=== PATIENT | female | born 1930 | race Asian ===

== ENCOUNTER 2017-01-27 04:43 | Inpatient (IN) | payer MEDICARE ==
[2017-01-27] VITALS (10 sets, daily range): BP systolic 91–153; BP diastolic 41–113
[~2017-01-27] VITALS: Ht 160 cm; Wt 52.2 kg
[2017-01-27] MEDS ORDERED: ATORVASTATIN CA20 MG GT (04:53)
[2017-01-27] MEDS ORDERED: OXYBUTYNIN CHLO10 MG GT (05:01)
[2017-01-27] MEDS ORDERED: DEPAKOTE ER500 MG GT (05:01)
[2017-01-27] MEDS ORDERED: ZINC SULFATE220 M1 GT (05:01)
[2017-01-27] MEDS ORDERED: VITAMIN C500 M6 GT (05:01)
[2017-01-27] MEDS ORDERED: MULTIVITAMINS1 EAC2 GT (05:01)
[2017-01-27] MEDS ORDERED: PROTONIX40 MG GT (05:01)
[2017-01-27] MEDS ORDERED: LOSARTAN POTASS50 MG GT (05:01)
[2017-01-27] MEDS ORDERED: QUETIAPINE FUMA25 MG GT (05:01)
[2017-01-27] MEDS ORDERED: PRO-STAT LIQUID30 ML GT (05:01)
[2017-01-27] MEDS ORDERED: ACETAMINOPHEN325 M1 GT (05:01)
[2017-01-27] MEDS ORDERED: Acetaminophen 650 MG SUPP RECTAL ONE ×2 (05:04→05:15)
[2017-01-27] MEDS ORDERED: NS 1000ml 1,600 ML IVLG ONE (05:15)
[2017-01-27 06:08] LABS: BILIRUBIN, URINE NEGATIVE (NEGATIVE); GLUCOSE, URINE (UA) NEGATIVE (NEGATIVE); KETONES,URINE NEGATIVE (NEGATIVE); NITRITE,URINE NEGATIVE (NEGATIVE); PH,URINE 9 (4.5-8.0); PROTEIN,URINE 3+ (NEGATIVE); UROBILINOGEN,URINE 1 MG/DL (0.0-1.0)
[2017-01-27 06:20] LABS: COLOR,URINE YELLOW
[2017-01-27 06:21] LABS: APPEARANCE,URINE CLOUDY; LEUKOCYTE ESTERASE ,URINE 1+ (NEGATIVE)
[2017-01-27] MEDS ORDERED: Zosyn 3.375gm inj ONE (06:22)
[2017-01-27 06:24] LABS: ALANINE AMINOTRANSFERASE 51 U/L (12-78); ALBUMIN/GLOBULIN RATIO 0.2 (1.0-2.7); ALKALINE PHOSPHATASE 76 U/L (46-116); ANION GAP 5 mmol/L (5-15); ASPARTATE AMINO TRANSFERASE 103 U/L (15-37); BILIRUBIN,TOTAL 0.2 MG/DL (0.2-1.0); BLOOD UREA NITROGEN 98 mg/dL (7-18); CALCIUM 6.7 MG/DL (8.5-10.1); CARBON DIOXIDE 38 MMOL/L (21-32); CHLORIDE 114 MMOL/L (98-107); CKMB 1.1 NG/ML (0.0-3.6); CREATINE KINASE 870 U/L (26-308); CREATININE 1.9 MG/DL (0.55-1.30); SODIUM 157 MMOL/L (136-145)
[2017-01-27 06:25] LABS: HEMATOCRIT 24.3 % (37.0-47.0); HEMOGLOBIN 7.5 G/DL (12.0-16.0); MEAN CORPUSCULAR VOLUME 98 FL (80-99); PLATELET COUNT 296 K/UL (150-450); RED BLOOD COUNT 2.48 M/UL (4.20-5.40); RED CELL DISTRIBUTION WIDTH 16.6 % (11.6-14.8); WHITE BLOOD COUNT 17.9 K/UL (4.8-10.8)
[2017-01-27 06:28] LABS: POTASSIUM 2.4 MMOL/L (3.5-5.1)
[2017-01-27] MEDS ORDERED: Piperacillin/Tazobactam 3.375 GM in NS 55 ML IVPB ONE (06:30)
--- NOTE | 2017-01-27 06:42 | Emergency Room Report ---
History of Present Illness General Chief Complaint: Dyspnea/Respdistress Source: Medical Record, EMS Present Illness HPI This is an 86-year-old [facility]. She is a DO NOT RESUSCITATE and has a feeding tube. She presents with chief complaint of altered mental status and fever. Onset for the last day. No nausea no vomiting. No diarrhea. Unable to get any history from this patient. History is from the [facility] note and EMS. Allergies: Coded Allergies: IODINE (Verified Allergy, Unknown, 01/27/17) Patient History Past Medical History: see triage record, old chart reviewed, HTN, dementia Past Surgical History: other Pertinent Family History: none Social History: Denies: smoking Last Menstrual Period: NA Now: No Immunizations: UTD Reviewed Nursing Documentation: PMH: Agreed, PSxH: Agreed Review of Systems Constitutional: Reports: malaise, weakness All Other Systems: limited - Secondary to her condition Physical Exam Vital Signs Date Time Temp Pulse Resp B/P (MAP) Pulse Ox O2 Delivery O2 Flow Rate FiO2 01/27/17 04:41 98.8 112 20 103/78 100 Non-Rebreather 01/27/17 05:00 2.0 vitals with tachycardia, hypoxia, and fever of 103 rectally. Sp02 EP Interpretation: abnormal General Appearance: moderate distress, Chronically Ill Head: normocephalic, atraumatic Eyes: bilateral eye PERRL, bilateral eye EOMI ENT: dry mucus membranes Neck: full range of motion, supple, no meningismus Respiratory: chest non-tender, crackles, rhonchi Cardiovascular #1: regular rate, rhythm, no murmur, tachycardia Gastrointestinal: normal bowel sounds, non tender, no mass, no organomegaly, no bruit, non-distended Musculoskeletal: back normal, normal range of motion, other - Decubital ulcer to right hip Psychiatric: mood/affect normal Skin: warm/dry Procedures Critical Care Time Critical Care Time Critical care is mandated in this patient who presented with severe sepsis secondary to pneumonia and UTI.. Patient require my urgent intervention to attenuate the risks of metabolic collapse which may lead to cardiovascular collapse and . Critical care time is 35 minutes excluding any reportable procedure. Critical care time included evaluation, multiple reevaluation, looking at old charts, interpreting laboratory and diagnostic data, discussing case with patient and family and consultants, and charting. Medical Decision Making Diagnostic Impression: Primary Impression: Sepsis Qualified Codes: A41.9 - Sepsis, unspecified organism Additional Impressions: Pneumonia Qualified Codes: J18.9 - Pneumonia, unspecified organism UTI (urinary tract infection) Qualified Codes: N30.00 - Acute cystitis without hematuria Anemia Qualified Codes: D64.9 - Anemia, unspecified ARF (acute renal failure) Qualified Codes: N17.9 - Acute kidney failure, unspecified Dehydration ACS (acute coronary syndrome) ER Course Patient presents with pneumonia and UTI. She is extremely dried. IV fluid given. Antibiotics given. Patient will be admitted. Laboratory Tests Test 01/27/17 05:30 White Blood Count 17.9 K/UL (4.8-10.8) H Red Blood Count 2.48 M/UL (4.20-5.40) L Hemoglobin 7.5 G/DL (12.0-16.0) L Hematocrit 24.3 % (37.0-47.0) L Mean Corpuscular Volume 98 FL (80-99) Mean Corpuscular Hemoglobin 30.3 PG (27.0-31.0) Mean Corpuscular Hemoglobin Concent 30.9 G/DL (32.0-36.0) L Red Cell Distribution Width 16.6 % (11.6-14.8) H Platelet Count 296 K/UL (150-450) Mean Platelet Volume 6.1 FL (6.5-10.1) L Neutrophils (%) (Auto) % (45.0-75.0) Lymphocytes (%) (Auto) % (20.0-45.0) Monocytes (%) (Auto) % (1.0-10.0) Eosinophils (%) (Auto) % (0.0-3.0) Basophils (%) (Auto) % (0.0-2.0) Urine Color Yellow Urine Appearance Cloudy Urine pH 9 (4.5-8.0) Urine Specific [place] 1.010 (1.005-1.035) Urine Protein 3+ (NEGATIVE) H Urine Glucose (UA) Negative (NEGATIVE) Urine Ketones Negative (NEGATIVE) Urine Occult Blood 2+ (NEGATIVE) H Urine Nitrite Negative (NEGATIVE) Urine Bilirubin Negative (NEGATIVE) Urine Urobilinogen 1 MG/DL (0.0-1.0) H Urine Leukocyte Esterase 1+ (NEGATIVE) H Urine RBC 5-10 /HPF (0 - 2) H Urine WBC 2-4 /HPF (0 - 2) Urine Squamous Epithelial Cells Few /LPF (NONE/OCC) Urine Triple Phosphate Crystals Many /LPF (NONE) H Urine Amorphous Sediment Many /LPF (NONE) H Urine Bacteria Moderate /HPF (NONE) H Sodium Level 157 MMOL/L (136-145) H Potassium Level 2.4 MMOL/L (3.5-5.1) *L Chloride Level 114 MMOL/L (98-107) H Carbon Dioxide Level 38 MMOL/L (21-32) H Anion Gap 5 mmol/L (5-15) Blood Urea Nitrogen 98 mg/dL (7-18) H Creatinine 1.9 MG/DL (0.55-1.30) H Estimat Glomerular Filtration Rate mL/min (>60) Glucose Level 179 MG/DL (74-106) H Lactic Acid Level 2.70 mmol/L (0.66-2.22) H Calcium Level 6.7 MG/DL (8.5-10.1) L Total Bilirubin 0.2 MG/DL (0.2-1.0) Aspartate Amino Transf (AST/SGOT) 103 U/L (15-37) H Alanine Aminotransferase (ALT/SGPT) 51 U/L (12-78) Alkaline Phosphatase 76 U/L (46-116) Total Creatine Kinase 870 U/L (26-308) H Creatine Kinase MB 1.1 NG/ML (0.0-3.6) Creatine Kinase MB Relative Index 0.1 Troponin I 0.158 ng/mL (0.000-0.056) Total Protein 6.4 G/DL (6.4-8.2) Albumin 1.0 G/DL (3.4-5.0) L Globulin 5.4 g/dL Albumin/Globulin Ratio 0.2 (1.0-2.7) L Lab Results Impression labs with leukocytosis and acute renal failure. EKG Diagnostic Results Rate: tachycardiac Rhythm: NSR ST Segments: other - NSST changes Rhythm Strip Diag. Results Rhythm Strip Time: 06:41 EP Interpretation: yes Rate: 90 Rhythm: NSR, no PVC's, no ectopy Chest X-Ray Diagnostic Results Chest X-Ray Diagnostic Results : Chest X-Ray Ordered: Yes # of Views/Limited/Complete: 1 View Indication: Shortness of Breath EP Interpretation: Yes Interpretation: no effusion, no pneumothorax, other - b/l infiltrates Impression: Other - pneumonia Electronically Signed by: Krishan Rose MD Last Vital Signs Date Time Temp Pulse Resp B/P (MAP) Pulse Ox O2 Delivery O2 Flow Rate FiO2 01/27/17 05:00 108 36 Nasal Cannula 2.0 01/27/17 05:00 103.1 95/45 97 Status: improved Disposition: ADMITTED INPATIENT Condition: Critical Referrals: EMBER HANSEN (PCP) KRISHAN ROSE M.D. Jan 27, 2017 06:42
--- NOTE | 2017-01-27 15:38 | Infectious Diseases Prog Note ---
Assessment/Plan Problems: (1) HCAP (healthcare-associated pneumonia) Assessment & Plan: with B/L infiltrates , will send sputum culture and screen for influenza, will start vancomycin and zosyn empiric coverage (2) UTI (urinary tract infection) Assessment & Plan: will send urine culture and start zosyn empiric coverage (3) Sepsis Assessment & Plan: due to the above, will send blood culture and start vancomycin and zosyn empirically (4) ANA ROSA (acute kidney injury) Assessment & Plan: due to sepsis , continue hydration and monitor urine out put , nephrology is following (5) Wound, open, hip or thigh Assessment & Plan: and mid back wound, continue local wound care and dressing change as per wound care service , continue off loading (6) Acute respiratory failure Assessment & Plan: due to the above, continue high flow oxygen, monitor ABG, and CXR (7) Dehydration Assessment & Plan: continue IVF for hydration , monitor urine output and electrolytes Subjective Allergies: Coded Allergies: IODINE (Verified Allergy, Unknown, 01/27/17) Objective Vital Signs Last 24 Hour Vital Signs Date Time Temp Pulse Resp B/P (MAP) Pulse Ox O2 Delivery O2 Flow Rate FiO2 01/27/17 12:30 96 26 123/63 95 Nasal Cannula 2.0 01/27/17 12:30 100.1 96 26 123/63 95 Nasal Cannula 2.0 01/27/17 11:22 89 25 112/80 95 Nasal Cannula 2.0 01/27/17 09:01 88 28 99/42 95 Room Air 01/27/17 06:45 87 36 103/41 100 Nasal Cannula 2.0 01/27/17 05:50 100.1 95 35 112/45 96 Nasal Cannula 2.0 01/27/17 05:00 108 36 Nasal Cannula 2.0 01/27/17 05:00 103.1 108 36 95/45 97 Nasal Cannula 2.0 01/27/17 04:41 98.8 112 20 103/78 100 Non-Rebreather Height (Feet): 5 Height (Inches): 3.00 Weight (Pounds): 115 Laboratory Tests Test 01/27/17 05:30 01/27/17 07:15 White Blood Count 17.9 K/UL (4.8-10.8) H Red Blood Count 2.48 M/UL (4.20-5.40) L Hemoglobin 7.5 G/DL (12.0-16.0) L Hematocrit 24.3 % (37.0-47.0) L Mean Corpuscular Volume 98 FL (80-99) Mean Corpuscular Hemoglobin 30.3 PG (27.0-31.0) Mean Corpuscular Hemoglobin Concent 30.9 G/DL (32.0-36.0) L Red Cell Distribution Width 16.6 % (11.6-14.8) H Platelet Count 296 K/UL (150-450) Mean Platelet Volume 6.1 FL (6.5-10.1) L Neutrophils (%) (Auto) % (45.0-75.0) Lymphocytes (%) (Auto) % (20.0-45.0) Monocytes (%) (Auto) % (1.0-10.0) Eosinophils (%) (Auto) % (0.0-3.0) Basophils (%) (Auto) % (0.0-2.0) Urine Color Yellow Urine Appearance Cloudy Urine pH 9 (4.5-8.0) Urine Specific [place] 1.010 (1.005-1.035) Urine Protein 3+ (NEGATIVE) H Urine Glucose (UA) Negative (NEGATIVE) Urine Ketones Negative (NEGATIVE) Urine Occult Blood 2+ (NEGATIVE) H Urine Nitrite Negative (NEGATIVE) Urine Bilirubin Negative (NEGATIVE) Urine Urobilinogen 1 MG/DL (0.0-1.0) H Urine Leukocyte Esterase 1+ (NEGATIVE) H Urine RBC 5-10 /HPF (0 - 2) H Urine WBC 2-4 /HPF (0 - 2) Urine Squamous Epithelial Cells Few /LPF (NONE/OCC) Urine Triple Phosphate Crystals Many /LPF (NONE) H Urine Amorphous Sediment Many /LPF (NONE) H Urine Bacteria Moderate /HPF (NONE) H Sodium Level 157 MMOL/L (136-145) H Potassium Level 2.4 MMOL/L (3.5-5.1) *L Chloride Level 114 MMOL/L (98-107) H Carbon Dioxide Level 38 MMOL/L (21-32) H Anion Gap 5 mmol/L (5-15) Blood Urea Nitrogen 98 mg/dL (7-18) H Creatinine 1.9 MG/DL (0.55-1.30) H Estimat Glomerular Filtration Rate mL/min (>60) Glucose Level 179 MG/DL (74-106) H Lactic Acid Level 2.70 mmol/L (0.66-2.22) H 2.00 mmol/L (0.66-2.22) Calcium Level 6.7 MG/DL (8.5-10.1) L Total Bilirubin 0.2 MG/DL (0.2-1.0) Aspartate Amino Transf (AST/SGOT) 103 U/L (15-37) H Alanine Aminotransferase (ALT/SGPT) 51 U/L (12-78) Alkaline Phosphatase 76 U/L (46-116) Total Creatine Kinase 870 U/L (26-308) H Creatine Kinase MB 1.1 NG/ML (0.0-3.6) Creatine Kinase MB Relative Index 0.1 Troponin I 0.158 ng/mL (0.000-0.056) Total Protein 6.4 G/DL (6.4-8.2) Albumin 1.0 G/DL (3.4-5.0) L Globulin 5.4 g/dL Albumin/Globulin Ratio 0.2 (1.0-2.7) L Lino Barclay M.D. Jan 27, 2017 15:38
[2017-01-27] MEDS ORDERED: Vancomycin 1gm/D5W 275ml IVPB ONE ×2 (17:00)
--- NOTE | 2017-01-27 17:13 | Diagnostic Imaging Report ---
Indication: Shortness of breath Technique: XRAY Chest 1v Comparison: None Findings: Limited exam with low lung volumes. Heart size and mediastinal contours are within normal limits given technique. Atherosclerotic calcifications are noted in the aortic arch. There is subtle interstitial prominence with a hazy opacity in the right midlung. There is no pleural effusion. No pneumothorax. The bones are diffusely demineralized. There is scoliosis and multilevel degenerative change of the thoracic spine. No acute osseous abnormality is appreciated. Impression: Limited exam with low lung volumes. Interstitial prominence with hazy opacity in the right midlung. Pneumonia should be excluded clinically. Follow-up exam recommended.
[2017-01-27] MEDS: Atorvastatin 20mg tab GT SCH (21:30)
[2017-01-27] MEDS: Valproic Acid 250mg/5ml Liquid GT SCH (21:31)
[2017-01-27] MEDS: Piperacillin/Tazobactam 3.375 GM in D5W 55 ML IVPB SCH (21:32)
[2017-01-28] VITALS: BP 106/79
[2017-01-28 04:00] VITALS: BP 191/44
[2017-01-28 08:00] VITALS: BP 97/60
[2017-01-28] MEDS: Multivitamins W/Minerals 15 ML UDC GT SCH (09:00)
[2017-01-28] MEDS: Piperacillin/Tazobactam 3.375 GM in D5W 55 ML IVPB SCH ×2 (10:00→21:28)
[2017-01-28] MEDS: Oxybutynin 5mg tab GT SCH (10:07)
[2017-01-28] MEDS: Valproic Acid 250mg/5ml Liquid GT SCH ×2 (10:08→21:28)
[2017-01-28] MEDS: Losartan 50mg tab GT SCH (10:12)
[2017-01-28 12:00] VITALS: BP 106/55
--- NOTE | 2017-01-28 13:08 | Infectious Diseases Prog Note ---
Assessment/Plan Problems: (1) HCAP (healthcare-associated pneumonia) Assessment & Plan: with B/L infiltrates , await sputum culture and screening for influenza, continue vancomycin and zosyn empiric coverage (2) UTI (urinary tract infection) Assessment & Plan: await urine culture, continue zosyn empiric coverage (3) Sepsis Assessment & Plan: due to the above, await blood culture, continue vancomycin and zosyn empirically (4) ANA ROSA (acute kidney injury) Assessment & Plan: due to sepsis , continue hydration and monitor urine out put , nephrology is following (5) Wound, open, hip or thigh Assessment & Plan: will send culture , continue local wound care and dressing change as per wound care service , continue off loading (6) Acute respiratory failure Assessment & Plan: due to the above, continue high flow oxygen, monitor ABG, and CXR (7) Dehydration Assessment & Plan: continue IVF for hydration , monitor urine output and electrolytes Subjective ROS Limited/Unobtainable: Yes Allergies: Coded Allergies: IODINE (Verified Allergy, Unknown, 01/27/17) Subjective she was resting in bed, quiet, altered, not in distress, unresponsive to verbal commands, on high flow oxygen Objective Vital Signs Last 24 Hour Vital Signs Date Time Temp Pulse Resp B/P (MAP) Pulse Ox O2 Delivery O2 Flow Rate FiO2 01/28/17 11:06 88 01/28/17 10:12 107/47 01/28/17 08:00 98.2 99 22 97/60 98 Room Air 01/28/17 04:00 91 01/28/17 04:00 97.7 100 18 191/44 100 01/28/17 00:00 98.6 108 16 106/79 90 Room Air 01/28/17 00:00 90 01/27/17 20:00 99.1 82 18 91/41 100 01/27/17 20:00 97 01/27/17 16:44 93/45 01/27/17 16:00 96.3 52 20 153/113 96 Nasal Cannula 2.0 01/27/17 16:00 94 01/27/17 16:00 97.7 103 18 150/81 93 Nasal Cannula 2.0 Height (Feet): 5 Height (Inches): 3.00 Weight (Pounds): 115 General Appearance: WD/WN, no acute distress HEENT: normocephalic, atraumatic, supple, no JVD Respiratory/Chest: chest wall non-tender, decreased breath sounds, crackles/ rales, expiratory wheezing Cardiovascular: normal peripheral pulses, normal rate, regular rhythm, no gallop/murmur, no JVD Abdomen: normal bowel sounds, soft, non tender, no organomegaly, non distended , no mass, no scars, other - G-tube site looks intact Extremities: no cyanosis, no clubbing Skin: no rash, ulcers, other - eschars Neurologic/Psychiatric: motor weakness, unresponsiveness Lymphatic: no neck adenopathy, no groin adenopathy Microbiology Date/Time Source Procedure Growth Status 01/27/17 05:30 Blood Blood Culture - Preliminary NO GROWTH AFTER 24 HOURS Resulted 01/27/17 05:15 Blood Blood Culture - Preliminary NO GROWTH AFTER 24 HOURS Resulted 01/27/17 09:15 Nasal Nares Left MRSA Culture - Final NO METHICILLIN RESISTANT STAPH AUREUS... Complete 01/27/17 05:30 Urine,Clean Catch Urine Culture - Preliminary Gram Negative Andrae Resulted Laboratory Tests Test 01/27/17 19:59 Arterial Blood pH 7.460 (7.350-7.450) Arterial Blood Partial Pressure CO2 48.5 mmHg (35.0-45.0) H Arterial Blood Partial Pressure O2 96.5 mmHg (75.0-100.0) Arterial Blood HCO3 33.8 mmol/L (22.0-26.0) H Arterial Blood Oxygen Saturation 96.7 % (92.0-98.0) Arterial Blood Base Excess 9.0 Nelson Test Positive Current Medications Medications (Trade) Dose Ordered Sig/Yamini Route PRN Reason Start Time Stop Time Status Last Admin Dose Admin Acetaminophen (Tylenol) 650 mg Q4H PRN ORAL Mild Pain/Temp > 100.5 01/27/17 19:30 02/26/17 19:29 Atorvastatin Calcium (Lipitor) 20 mg BEDTIME GT 01/27/17 21:00 02/26/17 20:59 01/27/17 21:30 Lansoprazole (Prevacid) 30 mg DAILY GT 01/28/17 09:00 02/27/17 08:59 01/28/17 10:06 Losartan Potassium (Cozaar) 50 mg DAILY GT 01/28/17 09:00 02/27/17 08:59 01/28/17 10:12 Multivitamins (Multivitamins W/ Minerals 15ml Liquid) 15 ml DAILY GT 01/28/17 09:00 02/27/17 08:59 01/28/17 09:00 Oxybutynin Chloride (Ditropan) 10 mg DAILY GT 01/28/17 09:00 02/27/17 08:59 01/28/17 10:07 Piperacillin Sod/ Tazobactam Sod 3.375 gm/Dextrose 55 ml @ 13.75 mls/ hr Q12HR IVPB 01/27/17 21:00 02/03/17 20:59 01/28/17 10:00 Quetiapine Fumarate (SEROquel) 12.5 mg DAILY GT 01/28/17 09:00 02/27/17 08:59 01/28/17 10:08 Valproic Acid (Depakene) 500 mg Q12HR GT 01/27/17 21:00 02/26/17 20:59 01/28/17 10:08 Vancomycin HCl (Vanco rx to dose) 1 ea DAILY PRN MISC Per rx protocol 01/27/17 15:30 02/26/17 15:29 Lino Barclay M.D. Jan 28, 2017 13:08
[2017-01-28 16:00] VITALS: BP 103/46
--- NOTE | 2017-01-28 17:00 | Consultation ---
DATE OF CONSULTATION: 01/28/2017 INFECTIOUS DISEASES CONSULTATION CONSULTING PHYSICIAN: Lino Barclay M.D. REQUESTING PHYSICIAN: Kush Dennis M.D. REASON FOR CONSULTATION: Pneumonia, UTI, sepsis with right hip wound infection, recommendation for antibiotics treatment. HISTORY OF PRESENT ILLNESS: The patient is an 86-year-old female, who was sent from [facility] to [facility] Emergency Room for altered mental status and fever for 24 hours. The patient did not have any nausea or vomiting. No diarrhea. No productive cough. The patient was started on high-flow oxygen via non-rebreathable mask since she was hypoxemic and hypotensive in the emergency room with blood pressure of 103/78. She had significant leukocytosis with white count of 17.9. Urinalysis showed evidence of infection. Chest x-ray showed bilateral infiltrates suspicious for pneumonia. Right hip wound looked infected with exudative drainage. So, Infectious Diseases Consultation was requested for IV antibiotics treatment and further management. As of note, the patient is a poor historian, cannot provide any history. History was mainly obtained from the medical record and nursing staff. PAST MEDICAL HISTORY: Significant for dementia, hypertension, and dysphagia with tube feed, status post G-tube for feeding. PAST SURGICAL HISTORY: She had feeding tube placement. MEDICATIONS: The patient received Zosyn in the emergency room. For the rest of her medications, please refer to MAR. ALLERGIES: She is allergic to iodine. SOCIAL HISTORY: She is a [facility] resident. No recent drugs, tobacco, or alcohol. FAMILY HISTORY: Unable to obtain. PHYSICAL EXAMINATION: VITAL SIGNS: Temperature 97.7 degrees, pulse 103, respirations 18, blood pressure 115/81, and saturation 93% on 2 liters nasal cannula. GENERAL: An elderly female, lying in bed, on high-flow oxygen via mask, altered, unresponsive, nonverbal, not in acute distress. HEENT: Normocephalic and atraumatic. Unable to assess pupils or oral mucosa. NECK: Supple. No lymphadenopathy. CARDIOVASCULAR: She was tachycardic. S1 and S2 normal. No murmur or gallop. LUNGS: She had crackles and diminished breathing sounds mainly on the right side with wheezing. ABDOMEN: Soft, obese, and nondistended. No organomegaly. G-tube site looks intact with no drainage or bleeding. EXTREMITIES: No edema or cyanosis. SKIN: She had large right hip wound with yellowish exudate in the center and eschars in the peripheral area with redness surrounding the wound and necrotic borders. She also has bruises on the left hip area and the left leg. LABORATORY AND DIAGNOSTIC DATA: Labs showed white count of 17.9, hemoglobin of 7.5, and platelet count of 296,000. BUN of 98 and creatinine of 1.9. Lactic acid of 2.7. AST of 103. Urinalysis showed +1 leukocyte esterase, WBC 2 to 4, and many bacteria. Microbiology, blood culture x2 pending and urine culture pending. Imaging, chest x-ray showed interstitial prominence with hazy opacity in the right mid lung, pneumonia should be excluded clinically. ASSESSMENT AND RECOMMENDATION: 1. Healthcare-acquired pneumonia with bilateral infiltrates. We will send sputum culture and screen for influenza. We will start vancomycin and Zosyn empiric coverage for now pending culture results. 2. Urinary tract infection. We will send urine culture and start Zosyn empiric coverage. 3. Sepsis due to the above. We will send blood culture and start vancomycin with Zosyn empiric coverage, pending culture. 4. Right hip wound infection with yellowish exudate. We will send wound culture. Continue local wound care and dressing change as per Wound Care Service. Continue offloading. The patient will be already on wide-spectrum antibiotics. 5. Acute respiratory failure due to the above. Continue high-flow oxygen. Monitor ABG and chest x-ray. 6. Dehydration. Continue IV fluid for hydration. Monitor urine output and electrolytes. Nephrology team is following. Thank you for the consult. Infectious Disease will continue to follow. Lino Barclay M.D. DR: Herminio JOB#: [id number] CC:
[2017-01-28 17:13] LABS: ANION GAP 8 mmol/L (5-15); BLOOD UREA NITROGEN 115 mg/dL (7-18); CALCIUM 6.3 MG/DL (8.5-10.1); CARBON DIOXIDE 32 MMOL/L (21-32); CHLORIDE 119 MMOL/L (98-107); CREATININE 2.1 MG/DL (0.55-1.30); POTASSIUM 2.8 MMOL/L (3.5-5.1); SODIUM 159 MMOL/L (136-145)
[2017-01-28 17:37] LABS: HEMATOCRIT 19.9 % (37.0-47.0); MEAN CORPUSCULAR VOLUME 97 FL (80-99); PLATELET COUNT 233 K/UL (150-450); RED BLOOD COUNT 2.05 M/UL (4.20-5.40); WHITE BLOOD COUNT 10.2 K/UL (4.8-10.8)
[2017-01-28 17:42] LABS: HEMOGLOBIN 6.2 G/DL (12.0-16.0)
[2017-01-28] MEDS ORDERED: Vancomycin 1gm/D5W 275ml IVPB ONE ×2 (18:00)
[2017-01-28] MEDS: D5NS w/KCl 40mEq 1000ml 1,000 ML IV SCH (18:22)
--- NOTE | 2017-01-28 19:02 | Wound Care Consultation ---
Wound Assessment Wound Assessment #1: Wound Number: 1 Wound Present on Admission: Yes New Wound: No Status Change of Wound: No Wound Location Body Site Modif: right, upper, posterior Wound Location Body Site: back Wound Type: pressure ulcer Janet Test: Does not Janet Pressure Ulcer Stage: Unstageable Wound Thickness: Full Thickness Wound Length: 10.0 Wound Width: 17.0 Wound Depth: utd Percent of Wound Bed Yellow/Wh: 40 Percent of Wound Black/Brown: 40 Percent of Wound Purple/Maroon: 20 Other Colors Identified: surrounding skin maroon at risk for further skin breakdown , scattered Wound Drainage Description: Serosanguineous Wound Drainage Amount: Moderate Wound Drainage Odor: None/Absent Tissue Surrounding Wound: Macerated Wound General Appearance: Reddened - maroon, Draining, Necrotic Wound Assessment #2: Wound Number: 2 Wound Present on Admission: Yes New Wound: No Status Change of Wound: No Wound Location Body Site Modif: mid Wound Location Body Site: other - sacrococcygeal Wound Type: pressure ulcer Janet Test: Does not Janet Pressure Ulcer Stage: Deep Tissue Injury Wound Thickness: Full Thickness Wound Length: 4.0 Wound Width: 4.0 Wound Depth: utd Percent of Wound Purple/Maroon: 100 Wound Drainage Amount: None Wound Drainage Odor: None/Absent Tissue Surrounding Wound: Intact Wound General Appearance: Reddened - maroon. Wound Assessment #3: Wound Number: 3 Wound Present on Admission: Yes New Wound: No Status Change of Wound: No Wound Location Body Site Modif: right Wound Location Body Site: sacral Wound Type: scar Janet Test: Does not Janet Wound Thickness: Full Thickness Wound Length: 6.0 Wound Width: 6.0 Percent of Wound [place]/Red: 100 Wound Drainage Amount: None Wound Drainage Odor: None/Absent Tissue Surrounding Wound: Intact Wound General Appearance: Reddened Wound Assessment #4: Wound Number: 4 Wound Present on Admission: Yes New Wound: No Status Change of Wound: No Wound Location Body Site Modif: right Wound Location Body Site: iliac crest Wound Type: pressure ulcer Janet Test: Does not Janet Pressure Ulcer Stage: Deep Tissue Injury Wound Thickness: Full Thickness Wound Length: 3.0 Wound Width: 3.0 Wound Depth: utd Percent of Wound Purple/Maroon: 100 Wound Drainage Amount: None Wound Drainage Odor: None/Absent Tissue Surrounding Wound: Intact Wound General Appearance: Reddened - maroon. Wound Assessment #5: Wound Number: 5 Wound Present on Admission: Yes New Wound: No Status Change of Wound: No Wound Location Body Site Modif: right Wound Location Body Site: trochanter Wound Type: pressure ulcer Janet Test: Does not Janet Pressure Ulcer Stage: Deep Tissue Injury Wound Thickness: Full Thickness Wound Length: 3.0 Wound Width: 3.0 Wound Depth: utd Percent of Wound Purple/Maroon: 100 Wound Drainage Amount: None Wound Drainage Odor: None/Absent Tissue Surrounding Wound: Erythemic Wound General Appearance: Reddened - maroon. Wound Assessment #6: Wound Number: 6 Wound Present on Admission: Yes New Wound: No Status Change of Wound: No Wound Location Body Site Modif: left, lower, medial Wound Location Body Site: leg Wound Type: blister - blood filled blister/dti Janet Test: Does not Janet Wound Thickness: Full Thickness Wound Length: 9.0 Wound Width: 4.0 Wound Depth: utd Percent of Wound Purple/Maroon: 100 Wound Drainage Amount: None Wound Drainage Odor: None/Absent Tissue Surrounding Wound: Erythemic Wound General Appearance: Reddened - maroon Wound Assessment #7: Wound Number: 7 Wound Present on Admission: Yes New Wound: No Status Change of Wound: No Wound Location Body Site Modif: left, lateral Wound Location Body Site: leg - extending to malleolus Wound Type: pressure ulcer Janet Test: Does not Janet Pressure Ulcer Stage: Deep Tissue Injury - scattered Wound Thickness: Full Thickness Wound Length: 15.0 Wound Width: 6.0 Wound Depth: utd Percent of Wound [place]/Red: 50 - deep red Percent of Wound Purple/Maroon: 50 Wound Drainage Amount: None Wound Drainage Odor: None/Absent Tissue Surrounding Wound: Erythemic Wound General Appearance: Reddened Wound Assessment #8: Wound Number: 8 Wound Present on Admission: Yes New Wound: No Status Change of Wound: No Wound Location Body Site Modif: left Wound Location Body Site: metatarsal head - 1st Wound Type: pressure ulcer Janet Test: Does not Janet Pressure Ulcer Stage: Deep Tissue Injury Wound Thickness: Full Thickness Wound Length: 2.0 Wound Width: 2.0 Wound Depth: utd Percent of Wound Purple/Maroon: 100 Wound Drainage Amount: None Wound Drainage Odor: None/Absent Tissue Surrounding Wound: Erythemic Wound General Appearance: Reddened - maroon Wound Assessment #9: Wound Number: 9 Wound Present on Admission: Yes New Wound: No Status Change of Wound: No Wound Location Body Site Modif: left Wound Location Body Site: metatarsal head - 5th metatarsal head extending to 5th toe. Wound Type: pressure ulcer Janet Test: Does not Janet Pressure Ulcer Stage: Deep Tissue Injury - scattered Wound Thickness: Full Thickness Wound Length: 5.0 Wound Width: 2.0 Wound Depth: utd Percent of Wound Purple/Maroon: 100 Wound Drainage Amount: None Wound Drainage Odor: None/Absent Tissue Surrounding Wound: Erythemic Wound General Appearance: Reddened - maroon. Wound Assessment #10: Wound Number: 10 Wound Present on Admission: Yes New Wound: No Status Change of Wound: No Wound Location Body Site Modif: left, upper Wound Location Body Site: back Wound Type: scab - dry Janet Test: Does not Janet Wound Thickness: Partial Thickness Wound Length: 1.0 Wound Width: 1.0 Wound Depth: utd Percent of Wound Black/Brown: 100 - dry Wound Drainage Amount: None Wound Drainage Odor: None/Absent Tissue Surrounding Wound: Intact Wound General Appearance: Reddened Wound Assessment #11: Wound Number: 11 Wound Present on Admission: Yes New Wound: No Status Change of Wound: No Wound Location Body Site Modif: left, mid, lateral Wound Location Body Site: back Wound Type: pressure ulcer Janet Test: Does not Janet Pressure Ulcer Stage: Deep Tissue Injury - scattered suspected Wound Thickness: Full Thickness Percent of Wound [place]/Red: 100 - deep red Wound Drainage Amount: None Wound Drainage Odor: None/Absent Tissue Surrounding Wound: Erythemic Wound General Appearance: Reddened Wound Assessment #12: Wound Number: 12 Wound Present on Admission: Yes New Wound: No Status Change of Wound: No Wound Location Body Site Modif: right Wound Location Body Site: metatarsal head - 1st Wound Type: pressure ulcer Janet Test: Does not Janet Pressure Ulcer Stage: Deep Tissue Injury Wound Thickness: Full Thickness Wound Length: 2.0 Wound Width: 2.0 Wound Depth: utd Percent of Wound Purple/Maroon: 100 Wound Drainage Amount: None Wound Drainage Odor: None/Absent Tissue Surrounding Wound: Erythemic Wound General Appearance: Reddened Wound Assessment #13: Wound Number: 13 Wound Present on Admission: Yes New Wound: No Wound Location Body Site Modif: right, lower, medial Wound Location Body Site: leg Wound Type: blister - blood filled Janet Test: Does not Janet Wound Thickness: Full Thickness Wound Length: 1.0 Wound Width: 1.0 Wound Depth: utd Percent of Wound Purple/Maroon: 100 Wound Drainage Amount: None Wound Drainage Odor: None/Absent Tissue Surrounding Wound: Erythemic Wound General Appearance: Reddened Wound Assessment #14: Wound Number: 14 Wound Present on Admission: Yes New Wound: No Status Change of Wound: No Wound Location Body Site Modif: right Wound Location Body Site: ear - top of ear fold Wound Type: pressure ulcer Janet Test: Does not Janet Pressure Ulcer Stage: Deep Tissue Injury Wound Thickness: Full Thickness Wound Length: 0.5 Wound Width: 0.5 Wound Depth: utd Percent of Wound Purple/Maroon: 100 Wound Drainage Amount: None Wound Drainage Odor: None/Absent Tissue Surrounding Wound: Erythemic Wound General Appearance: Reddened Wound Assessment #15: Wound Number: 15 Wound Present on Admission: Yes New Wound: No Status Change of Wound: No Wound Location Body Site Modif: right, lower, lateral Wound Location Body Site: leg Wound Type: pressure ulcer Janet Test: Does not Janet Pressure Ulcer Stage: Deep Tissue Injury Wound Thickness: Full Thickness Wound Length: 10.0 Wound Width: 2.0 Wound Depth: utd Percent of Wound Black/Brown: 100 - brown,dark [place] color Wound Drainage Amount: None Wound Drainage Odor: None/Absent Tissue Surrounding Wound: Erythemic Wound General Appearance: Reddened Wound Assessment #16: Wound Number: 16 Wound Present on Admission: Yes New Wound: No Status Change of Wound: No Wound Location Body Site Modif: right, lateral Wound Location Body Site: malleolus/ankle Wound Type: pressure ulcer Janet Test: Does not Janet Pressure Ulcer Stage: Deep Tissue Injury Wound Thickness: Full Thickness Wound Length: 2.0 Wound Width: 2.0 Wound Depth: utd Percent of Wound Purple/Maroon: 100 Wound Drainage Amount: None Wound Drainage Odor: None/Absent Tissue Surrounding Wound: Erythemic Wound General Appearance: Reddened Wound Assessment #17: Wound Number: 17 Wound Present on Admission: Yes New Wound: No Status Change of Wound: No Wound Location Body Site Modif: right Wound Location Body Site: metatarsal head - 5th metatarsal head extending to toe Wound Type: pressure ulcer Janet Test: Does not Janet Pressure Ulcer Stage: Deep Tissue Injury Wound Thickness: Full Thickness Wound Length: 5.0 Wound Width: 2.0 Wound Depth: utd Percent of Wound [place]/Red: 50 - deep red Percent of Wound Purple/Maroon: 50 Wound Drainage Amount: None Wound Drainage Odor: None/Absent Tissue Surrounding Wound: Erythemic Wound General Appearance: Reddened Wound Comment #1 right posterior back unstageable pressure ulcer, surrounding tissue with scattered maroon DTI at risk for further skin breakdown. #2 Mid sacrococcygeal deep tissue injury. #3 right aspect of sacral full thickness scar tissue. #4 right iliac crest deep tissue injury. #5 right trochanter deep tissue injury. #6 left medial lower leg blood filled blister /DTI. #7 left lateral lower leg extending to left malleolus scattered deep tissue injuries. #8 left 1st metatarsal head deep tissue injury. #9 left 5th metatarsal head extending to 5th toe scatted deep tissue injury. #10 left upper posterior back dry scab. #11 left mid lateral back suspected deep tissue injury. #12 right 1st metatarsal head deep tissue injury. #13 right medial lower leg blood filled blister/DTI #14 right top ear fold deep tissue injury. #15 right lateral lower leg deep tissue injury(suazo color ) #16 right lateral malleolus deep tissue injury. #17 right 5th metatarsal head extending to 5th toe scattered deep tissue injuries. #18 right heel full thickness scar tissue -3.0cmx 3.0cm #19 right mid lateral foot scar tissue 0.5cmx0.5cm #20 right malleolus full thickness scar tissue 2.0cmx2.0cm Recommendation - Local wound care as ordered. -Turn and reposition. -Apply low air loss mattress for wound and skin management. -Keep clean and dry. -Optimize nutrition -Avoid shear or friction. -Heel protectors, offload heels and feet. -Assess and notify MD if any further changes of condition to skin is noted. JENNIFER RAMÍREZ Jan 28, 2017 19:02
[2017-01-28 20:00] VITALS: BP 86/43
[2017-01-28] MEDS: Atorvastatin 20mg tab GT SCH (21:28)
[2017-01-29] VITALS (9 sets, daily range): BP systolic 63–120; BP diastolic 31–47
[2017-01-29] MEDS: Piperacillin/Tazobactam 3.375 GM in D5W 55 ML IVPB SCH (08:16)
[2017-01-29] MEDS: D5NS w/KCl 40mEq 1000ml 1,000 ML IV SCH ×2 (08:16→19:30)
[2017-01-29] MEDS: Valproic Acid 250mg/5ml Liquid GT SCH ×2 (08:22→21:44)
[2017-01-29] MEDS: Multivitamins W/Minerals 15 ML UDC GT SCH (08:23)
[2017-01-29] MEDS: Losartan 50mg tab GT SCH (08:28)
[2017-01-29] MEDS: Oxybutynin 5mg tab GT SCH (08:30)
[2017-01-29] MEDS ORDERED: Tubing IV Secondary IV ONE (12:32)
[2017-01-29] MEDS ORDERED: Sterile Water Irrig 1000ml IRRIG ONE (12:32)
[2017-01-29] MEDS ORDERED: NS 275ml ONE (12:32)
--- NOTE | 2017-01-29 15:14 | Cardiology Report ---
APPROVED REPORT EKG Measurement Heart [id number] Sinus tachycardia Possible Anterior infarct, age undetermined Abnormal ECG
[2017-01-29 15:36] LABS: ANION GAP 9 mmol/L (5-15); BLOOD UREA NITROGEN 132 mg/dL (7-18); CALCIUM 6.4 MG/DL (8.5-10.1); CARBON DIOXIDE 31 MMOL/L (21-32); CHLORIDE 118 MMOL/L (98-107); CREATININE 2.6 MG/DL (0.55-1.30); POTASSIUM 3.3 MMOL/L (3.5-5.1); SODIUM 158 MMOL/L (136-145)
--- NOTE | 2017-01-29 17:17 | Infectious Diseases Prog Note ---
Assessment/Plan Problems: (1) HCAP (healthcare-associated pneumonia) Assessment & Plan: with B/L infiltrates , await sputum culture and screening for influenza, will switch vancomycin and zosyn to clindamycin and cefepime to avoid nephrotoxicity . (2) UTI (urinary tract infection) Assessment & Plan: due to proteus mirabilis , will switch zosyn to cefepime empiric coverage (3) Sepsis Assessment & Plan: due to the above, blood culture grew gram positive cocci in one set , already on vancomycin and zosyn empirically, will switch to clindamycin and cefepime pending identification and sensitivity (4) ANA ROSA (acute kidney injury) Assessment & Plan: due to sepsis , continue hydration and monitor urine out put , nephrology is following (5) Wound, open, hip or thigh Assessment & Plan: will send culture , continue local wound care and dressing change as per wound care service , continue off loading (6) Acute respiratory failure Assessment & Plan: due to the above, continue high flow oxygen, monitor ABG, and CXR (7) Dehydration Assessment & Plan: continue IVF for hydration , monitor urine output and electrolytes Subjective ROS Limited/Unobtainable: Yes Allergies: Coded Allergies: IODINE (Verified Allergy, Unknown, 01/27/17) Subjective she was resting in bed, quiet, altered, not in distress, unresponsive to verbal commands, on high flow oxygen Objective Vital Signs Last 24 Hour Vital Signs Date Time Temp Pulse Resp B/P (MAP) Pulse Ox O2 Delivery O2 Flow Rate FiO2 01/29/17 16:55 98.8 92 21 90/34 100 Non-Rebreather 15.0 01/29/17 16:40 98.4 89 22 93/35 94 Non-Rebreather 15.0 01/29/17 12:00 97.3 95 20 112/44 95 Non-Rebreather 15.0 01/29/17 12:00 89 01/29/17 10:00 Non-Rebreather 15.0 100 01/29/17 10:00 95 Non-Rebreather 15.0 100 01/29/17 08:28 120/47 01/29/17 08:00 94 01/29/17 08:00 97.7 96 22 120/47 95 Non-Rebreather 15.0 01/29/17 04:00 97.3 89 14 106/46 93 01/29/17 04:00 91 01/29/17 00:00 91 01/29/17 00:00 98.1 88 18 101/45 100 01/28/17 20:00 98.1 86 16 86/43 100 01/28/17 20:00 84 01/28/17 18:01 99.1 Height (Feet): 5 Height (Inches): 3.00 Weight (Pounds): 115 General Appearance: WD/WN, no acute distress HEENT: normocephalic, atraumatic, anicteric, mucous membranes moist, PERRL, EOMI, pharynx normal, supple, no JVD Respiratory/Chest: chest wall non-tender, lungs clear, normal breath sounds, no respiratory distress, no accessory muscle use Cardiovascular: normal peripheral pulses, normal rate, regular rhythm, no gallop/murmur, no JVD Abdomen: normal bowel sounds, soft, non tender, no organomegaly, non distended , no mass, no scars Extremities: no cyanosis, no clubbing Skin: no rash, no lesions, ulcers Neurologic/Psychiatric: unresponsiveness Microbiology Date/Time Source Procedure Growth Status 01/27/17 05:30 Blood Blood Culture - Preliminary Resulted 01/27/17 05:15 Blood Blood Culture - Preliminary NO GROWTH AFTER 48 HOURS Resulted 01/28/17 13:30 Wound Gram Stain - Final Resulted 01/28/17 13:30 Wound Wound Culture Pending Resulted 01/27/17 09:15 Nasal Nares Left MRSA Culture - Final NO METHICILLIN RESISTANT STAPH AUREUS... Complete 01/27/17 05:30 Urine,Clean Catch Urine Culture - Preliminary Proteus Mirabilis Resulted 01/27/17 09:15 Rectum VRE Culture - Final Enterococcus Faecalis - Vre Complete Laboratory Tests Test 01/29/17 14:45 Sodium Level 158 MMOL/L (136-145) H Potassium Level 3.3 MMOL/L (3.5-5.1) L Chloride Level 118 MMOL/L (98-107) H Carbon Dioxide Level 31 MMOL/L (21-32) Anion Gap 9 mmol/L (5-15) Blood Urea Nitrogen 132 mg/dL (7-18) H Creatinine 2.6 MG/DL (0.55-1.30) H Estimat Glomerular Filtration Rate mL/min (>60) Glucose Level 178 MG/DL (74-106) H Calcium Level 6.4 MG/DL (8.5-10.1) L Vancomycin Level Trough 13.3 ug/mL (5.0-12.0) H Current Medications Medications (Trade) Dose Ordered Sig/Yamini Route PRN Reason Start Time Stop Time Status Last Admin Dose Admin Acetaminophen (Tylenol) 650 mg Q4H PRN ORAL Mild Pain/Temp > 100.5 01/27/17 19:30 02/26/17 19:29 01/28/17 17:02 Atorvastatin Calcium (Lipitor) 20 mg BEDTIME GT 01/27/17 21:00 02/26/17 20:59 01/28/17 21:28 Dextrose/ Electrolytes 1,000 ml @ 80 mls/hr [id number] IV 01/28/17 18:30 02/27/17 18:29 01/29/17 08:16 Lansoprazole (Prevacid) 30 mg DAILY GT 01/28/17 09:00 02/27/17 08:59 01/29/17 08:22 Losartan Potassium (Cozaar) 50 mg DAILY GT 01/28/17 09:00 02/27/17 08:59 01/29/17 08:28 Multivitamins (Multivitamins W/ Minerals 15ml Liquid) 15 ml DAILY GT 01/28/17 09:00 02/27/17 08:59 01/29/17 08:23 Oxybutynin Chloride (Ditropan) 10 mg DAILY GT 01/28/17 09:00 02/27/17 08:59 01/29/17 08:30 Piperacillin Sod/ Tazobactam Sod 3.375 gm/Dextrose 55 ml @ 13.75 mls/ hr Q12HR IVPB 01/27/17 21:00 02/03/17 20:59 01/29/17 08:16 Quetiapine Fumarate (SEROquel) 12.5 mg DAILY GT 01/28/17 09:00 02/27/17 08:59 01/29/17 08:29 Valproic Acid (Depakene) 500 mg Q12HR GT 01/27/17 21:00 02/26/17 20:59 01/29/17 08:22 Vancomycin HCl (Vanco rx to dose) 1 ea DAILY PRN MISC Per rx protocol 01/27/17 15:30 02/26/17 15:29 Lino Barclay M.D. Jan 29, 2017 17:17
[2017-01-29] MEDS ORDERED: Sodium Chloride 500ML 500 ML IV ONE (20:15)
[2017-01-29] MEDS ORDERED: Cefepime HCl 2 GM in D5W 55 ML IVPB SCH (21:00)
[2017-01-29] MEDS: Atorvastatin 20mg tab GT SCH (21:44)
[2017-01-29] MEDS ORDERED: Clindamycin 600mg 50 ML IV SCH (22:00)
[2017-01-30] VITALS (61 sets, daily range): BP systolic 61–110; BP diastolic 27–85
[2017-01-30] MEDS ORDERED: DOPamine 400mg/250ml 250 ML IV SCH (01:00)
[2017-01-30] MEDS: D5NS w/KCl 40mEq 1000ml 1,000 ML IV SCH ×2 (01:00→10:49)
[2017-01-30] MEDS ORDERED: DOPamine 400mg/250ml 250 ML IV ONE (01:23)
[2017-01-30] MEDS: Clindamycin 600mg 50 ML IV SCH ×3 (05:54→21:30)
[2017-01-30] MEDS: Valproic Acid 250mg/5ml Liquid GT SCH ×2 (08:35→21:01)
[2017-01-30 08:37] LABS: BASOPHILS % (AUTO) 0.3 % (0.0-2.0); EOSINOPHILS % (AUTO) 2.3 % (0.0-3.0); HEMATOCRIT 21.6 % (37.0-47.0); LYMPHOCYTES % (AUTO) 13.8 % (20.0-45.0); MEAN CORPUSCULAR VOLUME 97 FL (80-99); MONOCYTES % (AUTO) 1.7 % (1.0-10.0); NEUTROPHILS % (AUTO) 81.8 % (45.0-75.0); PLATELET COUNT 241 K/UL (150-450); RED BLOOD COUNT 2.22 M/UL (4.20-5.40); RED CELL DISTRIBUTION WIDTH 16.3 % (11.6-14.8); WHITE BLOOD COUNT 13.1 K/UL (4.8-10.8)
[2017-01-30] MEDS: Multivitamins W/Minerals 15 ML UDC GT SCH (08:37)
[2017-01-30] MEDS ORDERED: Cefepime HCl 2 GM in D5W 55 ML IVPB SCH (09:00)
[2017-01-30] MEDS ORDERED: Losartan 50mg tab GT SCH (09:00)
[2017-01-30] MEDS: Oxybutynin 5mg tab GT SCH (09:42)
--- NOTE | 2017-01-30 12:33 | Infectious Diseases Prog Note ---
Assessment/Plan Problems: (1) HCAP (healthcare-associated pneumonia) Assessment & Plan: with B/L infiltrates , await sputum culture and screening for influenza, now on clindamycin and cefepime empiric coverage (2) UTI (urinary tract infection) Assessment & Plan: due to proteus mirabilis , pansensitive , on cefepime empiric coverage (3) Sepsis Assessment & Plan: due to the above, blood culture grew coag negative staph in one set , most likely contaminant , already on clindamycin and cefepime (4) ANA ROSA (acute kidney injury) Assessment & Plan: due to sepsis , continue hydration and monitor urine out put , nephrology is following (5) Wound, open, hip or thigh Assessment & Plan: culture grew gram negative bacillus , continue local wound care and dressing change as per wound care service , continue off loading (6) Acute respiratory failure Assessment & Plan: due to the above, continue high flow oxygen, monitor ABG, and CXR (7) Dehydration Assessment & Plan: continue IVF for hydration , monitor urine output and electrolytes Subjective ROS Limited/Unobtainable: Yes Allergies: Coded Allergies: IODINE (Verified Allergy, Unknown, 01/27/17) Subjective she was on BIBAP, resting in bed, altered, not in distress, unresponsive to verbal commands, still hypotensive on dopamin drip, afebrile Objective Vital Signs Last 24 Hour Vital Signs Date Time Temp Pulse Resp B/P (MAP) Pulse Ox O2 Delivery O2 Flow Rate FiO2 01/30/17 12:00 98.4 86 19 80/42 96 Bi-pap 80 01/30/17 12:00 85 01/30/17 11:30 86 19 83/42 100 Bi-pap 80 01/30/17 11:04 87 18 99 Facial 80 01/30/17 11:00 86 19 94/49 100 Bi-pap 80 01/30/17 10:30 87 17 95/70 96 Bi-pap 80 01/30/17 10:00 82 16 90/39 98 Bi-pap 80 01/30/17 09:30 79 16 90/39 99 Bi-pap 100 01/30/17 09:09 80 16 97 Facial 100 01/30/17 09:00 79 19 86/47 100 Bi-pap 100 01/30/17 08:36 94/38 01/30/17 08:30 82 19 88/36 100 Bi-pap 100 01/30/17 08:00 74 01/30/17 08:00 79 19 94/38 100 Bi-pap 100 01/30/17 08:00 94/38 01/30/17 07:30 80 19 88/41 100 Bi-pap 100 01/30/17 07:00 98.3 82 19 80/44 100 Bi-pap 100 01/30/17 06:54 94 Bi-pap 100 01/30/17 06:54 Bi-pap 100 01/30/17 06:47 87 17 94 Facial 100 01/30/17 06:45 89 19 110/85 100 Bi-pap 100 01/30/17 06:30 111 19 97/60 100 Bi-pap 100 01/30/17 06:15 85 19 89/38 100 Bi-pap 100 01/30/17 06:00 86 20 100/49 100 Bi-pap 100 01/30/17 05:45 84 19 99/46 99 Bi-pap 100 01/30/17 05:30 85 17 94/34 95 Bi-pap 100 01/30/17 05:15 85 17 99/46 95 Bi-pap 100 01/30/17 05:00 83 17 93/41 95 Bi-pap 100 01/30/17 04:58 83 16 100 Nasal 100 01/30/17 04:45 83 16 93/41 95 Bi-pap 100 01/30/17 04:30 83 16 87/39 95 Bi-pap 100 01/30/17 04:20 84 16 100 Nasal 100 01/30/17 04:15 82 16 104/37 95 Bi-pap 100 01/30/17 04:00 99.1 84 20 83/31 95 Bi-pap 100 01/30/17 04:00 86 01/30/17 03:45 88 20 75/42 95 Bi-pap 100 01/30/17 03:30 21 95/37 100 Bi-pap 100 01/30/17 03:15 21 97/36 100 Bi-pap 100 01/30/17 03:00 87 21 91/37 100 Bi-pap 100 01/30/17 02:45 87 21 97/36 100 Bi-pap 100 01/30/17 02:30 86 21 91/37 100 Bi-pap 100 01/30/17 02:15 86 21 89/38 100 Bi-pap 100 01/30/17 02:00 91/39 01/30/17 02:00 83 18 89/38 96 Bi-pap 100 01/30/17 01:58 82 21 100 Nasal 100 01/30/17 01:45 83 18 91/37 96 Bi-pap 100 01/30/17 01:30 83 18 89/35 96 Bi-pap 100 01/30/17 01:29 66/29 01/30/17 01:15 85 20 66/29 100 Bi-pap 100 01/30/17 01:00 85 19 74/29 97 Bi-pap 100 01/30/17 00:45 86 19 72/28 97 Non-Rebreather 15.0 01/30/17 00:30 86 20 61/34 97 Non-Rebreather 15.0 01/30/17 00:26 86 01/30/17 00:15 86 23 63/38 93 Non-Rebreather 15.0 01/30/17 00:00 99.1 88 23 76/34 93 Non-Rebreather 15.0 01/29/17 23:46 78/32 01/29/17 23:45 86 01/29/17 23:22 97.2 94 20 63/31 86 Non-Rebreather 15.0 01/29/17 21:11 92 Non-Rebreather 15.0 100 01/29/17 21:10 Non-Rebreather 15.0 100 01/29/17 20:52 171 01/29/17 20:05 97.9 153 22 82/41 100 Non-Rebreather 15.0 01/29/17 16:55 98.8 92 21 90/34 100 Non-Rebreather 15.0 01/29/17 16:40 98.4 89 22 93/35 94 Non-Rebreather 15.0 01/29/17 16:00 88 Height (Feet): 5 Height (Inches): 3.00 Weight (Pounds): 115 General Appearance: WD/WN, no acute distress HEENT: normocephalic, atraumatic, anicteric, supple, no JVD Respiratory/Chest: no respiratory distress, no accessory muscle use, decreased breath sounds, crackles/rales Cardiovascular: regularly irregular, no gallop/murmur, no JVD, tachycardia, arrhythmia Abdomen: soft, non tender, no organomegaly, non distended, no mass, no scars Extremities: no cyanosis, no clubbing Skin: no rash, no lesions, ulcers Neurologic/Psychiatric: unresponsiveness Lymphatic: no neck adenopathy, no groin adenopathy Microbiology Date/Time Source Procedure Growth Status 01/28/17 13:30 Wound Gram Stain - Final Resulted 01/28/17 13:30 Wound Culture - Preliminary Gram Negative Bacillus 1 Usual Skin Sylvia Resulted Laboratory Tests Test 01/29/17 14:45 01/30/17 00:20 01/30/17 08:00 Sodium Level 158 MMOL/L (136-145) H Potassium Level 3.3 MMOL/L (3.5-5.1) L Chloride Level 118 MMOL/L (98-107) H Carbon Dioxide Level 31 MMOL/L (21-32) Anion Gap 9 mmol/L (5-15) Blood Urea Nitrogen 132 mg/dL (7-18) H Creatinine 2.6 MG/DL (0.55-1.30) H Estimat Glomerular Filtration Rate mL/min (>60) Glucose Level 178 MG/DL (74-106) H Calcium Level 6.4 MG/DL (8.5-10.1) L Vancomycin Level Trough 13.3 ug/mL (5.0-12.0) H Arterial Blood pH 7.283 (7.350-7.450) Arterial Blood Partial Pressure CO2 61.1 mmHg (35.0-45.0) *H Arterial Blood Partial Pressure O2 199.3 mmHg (75.0-100.0) H Arterial Blood HCO3 28.3 mmol/L (22.0-26.0) H Arterial Blood Oxygen Saturation 98.7 % (92.0-98.0) H Arterial Blood Base Excess 1.0 Nelson Test Positive White Blood Count 13.1 K/UL (4.8-10.8) H Red Blood Count 2.22 M/UL (4.20-5.40) L Hemoglobin 8.0 G/DL (12.0-16.0) L Hematocrit 21.6 % (37.0-47.0) L Mean Corpuscular Volume 97 FL (80-99) Mean Corpuscular Hemoglobin 36.1 PG (27.0-31.0) H Mean Corpuscular Hemoglobin Concent 37.2 G/DL (32.0-36.0) H Red Cell Distribution Width 16.3 % (11.6-14.8) H Platelet Count 241 K/UL (150-450) Mean Platelet Volume 7.9 FL (6.5-10.1) Neutrophils (%) (Auto) 81.8 % (45.0-75.0) H Lymphocytes (%) (Auto) 13.8 % (20.0-45.0) L Monocytes (%) (Auto) 1.7 % (1.0-10.0) Eosinophils (%) (Auto) 2.3 % (0.0-3.0) Basophils (%) (Auto) 0.3 % (0.0-2.0) Current Medications Medications (Trade) Dose Ordered Sig/Yamini Route PRN Reason Start Time Stop Time Status Last Admin Dose Admin Acetaminophen (Tylenol) 650 mg Q4H PRN ORAL Mild Pain/Temp > 100.5 01/30/17 03:30 02/26/17 19:29 Atorvastatin Calcium (Lipitor) 20 mg BEDTIME GT 01/30/17 21:00 02/26/17 20:59 Cefepime HCl 2 gm/ Dextrose 55 ml @ 110 mls/hr EVERY 12 HOURS IVPB 01/30/17 09:00 02/05/17 20:59 01/30/17 08:35 Clindamycin HCl/ Dextrose 50 ml @ 100 mls/hr Q8HR IV 01/30/17 06:00 02/05/17 21:59 01/30/17 05:54 Dextrose/ Electrolytes 1,000 ml @ 80 mls/hr [id number] IV 01/30/17 01:00 02/27/17 18:29 01/30/17 10:49 Dopamine HCl/ Dextrose 250 ml @ 0 mls/hr Q24H IV 01/31/17 01:00 03/01/17 00:59 01/30/17 01:29 Lansoprazole (Prevacid) 30 mg DAILY GT 01/30/17 09:00 02/27/17 08:59 01/30/17 08:35 Losartan Potassium (Cozaar) 50 mg DAILY GT 01/30/17 09:00 02/27/17 08:59 01/30/17 08:36 Multivitamins (Multivitamins W/ Minerals 15ml Liquid) 15 ml DAILY GT 01/30/17 09:00 02/27/17 08:59 01/30/17 08:37 Oxybutynin Chloride (Ditropan) 10 mg DAILY GT 01/30/17 09:00 02/27/17 08:59 01/30/17 09:42 Quetiapine Fumarate (SEROquel) 12.5 mg DAILY GT 01/30/17 09:00 02/27/17 08:59 01/30/17 09:42 Valproic Acid (Depakene) 500 mg Q12HR GT 01/30/17 09:00 02/26/17 20:59 01/30/17 08:35 Lino Barclay M.D. Jan 30, 2017 12:33
[2017-01-30] MEDS: DOPamine 400mg/250ml 250 ML IV SCH (14:02)
--- NOTE | 2017-01-30 15:00 | Consultation ---
DATE OF CONSULTATION: 01/29/2017 EMERGENCY CARDIOLOGY CONSULTATION CONSULTING PHYSICIAN: David Abreu M.D. REQUESTING PHYSICIAN: Kush Denins M.D. REASON FOR CONSULTATION: Rapid atrial fibrillation. HISTORY OF PRESENT ILLNESS: This is an 86-year-old female, who was admitted to the hospital because of fevers due to pneumonia with associated hypoxia. She became increasingly hypotensive and developed rapid atrial fibrillation prompting this consultation. PAST MEDICAL HISTORY: Hypertension, cerebrovascular disease with dementia, and dysphagia with G-tube. ALLERGIES: Iodine. MEDICATIONS: Reviewed and reconciled. SOCIAL HISTORY: No record of smoking, alcohol, or substance abuse. FAMILY HISTORY: Unknown. REVIEW OF SYSTEMS: Not obtainable. PHYSICAL EXAMINATION: VITAL SIGNS: Afebrile, blood pressure 65/30, pulse 120, respirations 18. Monitor atrial fibrillation. LUNGS: Coarse breath sounds. Scattered rhonchi. HEART: Irregularly irregular rhythm. Rapid rate. Normal S1, S2. No murmur. ABDOMEN: Soft and obese. G-tube intact. EXTREMITIES: With 1+ dependent edema. SKIN: Has a wound on the right hip. LABORATORY DATA: Noted. IMPRESSION: 1. Pneumonia. 2. Sepsis with shock. 3. Acute myocardial ischemia. 4. Atrial fibrillation with rapid ventricular response. 5. Right hip wound. 6. Anemia. 7. Hypoxemia. 8. Acute respiratory failure. 9. Hypovolemia. 10. Dehydration/hypernatremia PLAN: 1. Volume resuscitation, if inadequate response pressors will be added. Hypotonic fluids once volume deficit corrected. 2. BiPAP support. 3. Broad-spectrum antibiotics. 4. If inadequate rate control is achieved with adequate perfusion pressures, the patient will be digitalized. 5. Antihypertensives are put on hold at this time due to hypotension. 6. DVT and stress ulcer prophylaxis. David Abreu M.D. DR: JANA JOB#: [id number] CC: JEREMY
[2017-01-30] MEDS ORDERED: Sterile Water Irrig 1000ml IRRIG ONE (17:28)
[2017-01-30] MEDS ORDERED: Tubing IV Secondary IV ONE ×2 (17:28→17:30)
[2017-01-30] MEDS ORDERED: NS 275ml ONE (17:30)
[2017-01-30] MEDS ORDERED: Tubing Blood Filter IV ONE (17:30)
--- NOTE | 2017-01-30 18:00 | Consultation ---
Consult Note Consult Note DATE OF CONSULTATION: 01/30/2017 PULMONARY CONSULTATION CONSULTING PHYSICIAN: Arnoldo Galeana M.D. REQUESTING PHYSICIAN: Kush Dennis M.D. REASON FOR CONSULTATION: Rapid atrial fibrillation.Respiratory Failure. HISTORY OF PRESENT ILLNESS: This is an 86-year-old female, who was admitted to the hospital because of fevers due to pneumonia with associated hypoxia. She became increasingly hypotensive and developed rapid atrial fibrillation prompting this consultation. She was placed on BiPAP; she is noted to be DNR PAST MEDICAL HISTORY: Hypertension, cerebrovascular disease with dementia, and dysphagia with G-tube. ALLERGIES: Iodine. MEDICATIONS: Reviewed and reconciled. SOCIAL HISTORY: No record of smoking, alcohol, or substance abuse. FAMILY HISTORY: Unknown. REVIEW OF SYSTEMS: Not obtainable. PHYSICAL EXAMINATION: VITAL SIGNS: Afebrile, blood pressure 65/30, pulse 120, respirations 18. Monitor atrial fibrillation. LUNGS: Coarse breath sounds. Scattered rhonchi. HEART: Irregularly irregular rhythm. Rapid rate. Normal S1, S2. No murmur. ABDOMEN: Soft and obese. G-tube intact. EXTREMITIES: With 1+ dependent edema. SKIN: Has a wound on the right hip. LABORATORY DATA: Noted. IMPRESSION: 1. Pneumonia. 2. Sepsis with shock. 3. Acute myocardial ischemia. 4. Atrial fibrillation with rapid ventricular response. 5. Right hip wound. 6. Anemia. 7. Hypoxemia. 8. Acute respiratory failure. 9. Hypovolemia. 10. Dehydration. PLAN: 1. Volume resuscitation, if inadequate response pressors will be added. 2. BiPAP support. 3. Broad-spectrum antibiotics. 4. If inadequate rate control is achieved with adequate perfusion pressures, the patient will be digitalized. 5. Antihypertensives are put on hold at this time due to hypotension. Arnoldo Galeana M.D. Arnoldo Galeana MD Jan 30, 2017 18:00
--- NOTE | 2017-01-30 18:15 | History and Physical Report ---
DATE OF ADMISSION: 01/27/2017 HISTORY AND PHYSICAL/ICU VISIT HISTORY OF PRESENT ILLNESS: The patient is an 86-year-old white female who came to the emergency room from senior care with acute respiratory failure, hypoxia, pneumonia, sepsis, and hypotension. The patient currently nonverbal, on BiPAP. She has no distress. PAST MEDICAL HISTORY: Obesity, COPD, dementia, and depression. MEDICATIONS: See the list. ALLERGIES: NKA. PHYSICAL EXAMINATION: GENERAL: This is an elderly female, who is currently awake, currently nonverbal, on BiPAP machine. VITAL SIGNS: Blood pressure is 105/70, pulse 100, respirations 18, and no fever. The patient on dopamine drip. HEENT: Eyes are close. NECK: Supple. CHEST: Bilateral decreased breath sounds with scattered wheezing and crackles. CARDIOVASCULAR: Irregular rhythm. Tachycardia. ABDOMEN: Soft. Positive bowel sounds. Nontender. EXTREMITIES: No swelling. GENITOURINARY: Deferred. LABORATORY AND DIAGNOSTIC DATA: Laboratory examinations are . ASSESSMENT AND PLAN: 1. Acute respiratory failure. 2. Pneumonia. 3. Sepsis. 4. Hypotension. 5. Obesity. We will continue in ICU. Continue dopamine drip. Continue IV antibiotic. Bronchodilator treatment. Intravenous fluid. Nephrology on consult. Discussed with Dr. Dennis. Alin Peter M.D. DR: ESTRELLITA JOB#: [id number] CC:
--- NOTE | 2017-01-30 19:30 | Progress Note ---
DATE: 01/30/2017 CARDIOLOGY CRITICAL CARE NOTE SUBJECTIVE: The patient remains in the intensive care unit. She continues to require pressor support for low range blood pressure. She continues to have episodes of rapid atrial fibrillation. OBJECTIVE: VITAL SIGNS: Blood pressure 85/50, pulse 110, respirations 18 and no fevers. HEART: Irregularly irregular rhythm. Normal S1 and S2. LUNGS: Moderate rhonchi. No wheezing. ABDOMEN: Soft and nontender. EXTREMITIES: No edema. LABORATORY AND DIAGNOSTIC DATA: From yesterday reviewed. Repeat laboratories are pending. White count 13 and hemoglobin 8 posttransfusion. IMPRESSION: 1. Shock. 2. Sepsis. 3. Severe anemia status post transfusion. 4. Dysphagia with gastrostomy tube. 5. Pneumonia. 6. Acute myocardial ischemia. 7. Paroxysmal atrial fibrillation with rapid ventricular response. 8. Dehydration. 9. Hypovolemia. 10. Hypernatremia. PLAN: 1. Volume resuscitation. 2. Hypotonic fluids. 3. Intravenous adjusted. 4. Taper off pressors when able. 5. Continue broad-spectrum antibiotics. 6. BiPAP support as needed. 7. Digitalization if rapid atrial fibrillation persists, present rate is physiologically appropriated. 8. Continue to hold all antihypertensive. 9. DVT prophylaxis. 10. Remains critical and guarded. David Abreu M.D. DR: DHRUV JOB#: [id number] CC:
[2017-01-30] MEDS: Atorvastatin 20mg tab GT SCH (21:02)
[2017-01-31] VITALS (51 sets, daily range): BP systolic 76–122; BP diastolic 29–70
[2017-01-31] MEDS: DOPamine 400mg/250ml 250 ML IV SCH (00:11)
[2017-01-31] MEDS ORDERED: DOPamine 400mg/250ml 250 ML IV SCH (01:00)
[2017-01-31] MEDS: Clindamycin 600mg 50 ML IV SCH ×3 (05:37→21:31)
[2017-01-31 05:51] LABS: HEMATOCRIT 25.7 % (37.0-47.0); HEMOGLOBIN 7.8 G/DL (12.0-16.0); MEAN CORPUSCULAR VOLUME 100 FL (80-99); PLATELET COUNT 168 K/UL (150-450); RED BLOOD COUNT 2.56 M/UL (4.20-5.40); RED CELL DISTRIBUTION WIDTH 16.7 % (11.6-14.8); WHITE BLOOD COUNT 10.6 K/UL (4.8-10.8)
[2017-01-31 06:18] LABS: ALANINE AMINOTRANSFERASE 43 U/L (12-78); ALBUMIN 0.7 G/DL (3.4-5.0); ALBUMIN/GLOBULIN RATIO 0.1 (1.0-2.7); ALKALINE PHOSPHATASE 63 U/L (46-116); ANION GAP 9 mmol/L (5-15); ASPARTATE AMINO TRANSFERASE 101 U/L (15-37); BILIRUBIN,TOTAL 0.2 MG/DL (0.2-1.0); BLOOD UREA NITROGEN 1 mg/dL (7-18); CALCIUM 6.9 MG/DL (8.5-10.1); CARBON DIOXIDE 27 MMOL/L (21-32); CHLORIDE 119 MMOL/L (98-107); POTASSIUM 4.6 MMOL/L (3.5-5.1); SODIUM 155 MMOL/L (136-145)
[2017-01-31 06:43] LABS: CREATININE < 0.2 MG/DL (0.55-1.30)
[2017-01-31] MEDS: Cefepime 1gm in D5W 55ml IVPB SCH (09:28)
[2017-01-31] MEDS: Valproic Acid 250mg/5ml Liquid GT SCH ×2 (09:29→20:38)
[2017-01-31] MEDS: Oxybutynin 5mg tab GT SCH (09:30)
[2017-01-31] MEDS: Multivitamins W/Minerals 15 ML UDC GT SCH (09:30)
--- NOTE | 2017-01-31 09:33 | Pulmonology Progress Note ---
Assessment/Plan Assessment/Plan IMPRESSION: 1. Pneumonia. 2. Sepsis with shock. 3. Acute myocardial ischemia. 4. Atrial fibrillation with rapid ventricular response. 5. Right hip wound. 6. Anemia. 7. Hypoxemia. 8. Acute respiratory failure. 9. Hypovolemia. 10. Dehydration. PLAN: 1. Volume resuscitation, if inadequate response pressors will be added. On Dopamine 2. BiPAP support. 3. Broad-spectrum antibiotics. 4. If inadequate rate control is achieved with adequate perfusion pressures, the patient will be digitalized. 5. Antihypertensives are put on hold at this time due to hypotension. 6. Will check ABG Subjective Interval Events: Remains on BiPAP; on Dopamine Constitutional: Reports: no symptoms HEENT: Repors: no symptoms Respiratory: Reports: no symptoms Cardiovascular: Reports: no symptoms Gastrointestinal/Abdominal: Reports: no symptoms Genitourinary: Reports: no symptoms Allergies: Coded Allergies: IODINE (Verified Allergy, Unknown, 01/27/17) Objective Last 24 Hour Vital Signs Date Time Temp Pulse Resp B/P (MAP) Pulse Ox O2 Delivery O2 Flow Rate FiO2 01/31/17 08:53 84 19 100 Full Face 30 01/31/17 08:01 89 21 99 Full Face 30 01/31/17 08:00 Bi-pap 30 01/31/17 08:00 90 01/31/17 07:47 99 Bi-pap 60 01/31/17 06:30 85 37 97/40 97 Bi-pap 30 01/31/17 06:00 89 37 91/42 97 Bi-pap 30 01/31/17 05:30 90 33 97/39 97 Bi-pap 30 01/31/17 05:30 84 19 98 Full Face 30 01/31/17 05:00 89 19 96/43 99 Bi-pap 30 01/31/17 04:30 89 18 98/38 100 Bi-pap 30 01/31/17 04:15 85 18 100/44 100 Bi-pap 30 01/31/17 04:00 30 01/31/17 04:00 98.1 86 18 97/47 100 Bi-pap 30 01/31/17 04:00 85 01/31/17 03:45 88 18 88/37 100 Bi-pap 30 01/31/17 03:30 92 18 99/61 100 Bi-pap 30 01/31/17 03:15 87 18 76/41 100 Bi-pap 30 01/31/17 03:14 81 19 100 Full Face 30 01/31/17 03:00 83 18 86/32 100 Bi-pap 30 01/31/17 02:30 86 18 84/31 100 Bi-pap 30 01/31/17 02:00 87 18 91/29 100 Bi-pap 30 01/31/17 01:30 86 18 88/32 100 Bi-pap 30 01/31/17 01:23 83 17 100 Facial 30 01/31/17 01:00 83 18 91/34 100 Bi-pap 30 01/31/17 00:30 81 17 92/32 100 Bi-pap 30 01/31/17 00:11 83/40 01/31/17 00:00 98.3 82 17 83/40 100 Bi-pap 30 01/31/17 00:00 91 01/31/17 00:00 30 01/30/17 23:30 91 17 100 Facial 60 01/30/17 23:30 93 17 90/36 100 Bi-pap 60 01/30/17 23:00 92 17 95/37 100 Bi-pap 60 01/30/17 22:30 90 17 96/41 100 Bi-pap 60 01/30/17 22:00 88 18 85/37 100 Bi-pap 60 01/30/17 21:30 90 18 100/42 100 Bi-pap 60 01/30/17 21:30 92 20 100 Facial 60 01/30/17 21:00 98 18 101/37 100 Bi-pap 60 01/30/17 20:30 93 19 96/39 100 Bi-pap 60 01/30/17 20:00 93 19 97/41 100 Bi-pap 60 01/30/17 20:00 93 01/30/17 20:00 60 01/30/17 19:30 Bi-pap 01/30/17 19:30 100 Bi-pap 60 01/30/17 19:30 90 18 100 Facial 60 01/30/17 19:30 98.3 91 19 109/45 100 Bi-pap 60 01/30/17 19:00 92 17 98/45 100 Bi-pap 60 01/30/17 18:00 90 17 85/39 100 Bi-pap 60 01/30/17 17:30 88 18 89/40 100 Bi-pap 60 12/25/17 17:02 84 15 99 Facial 60 01/30/17 17:00 84 17 84/36 100 Bi-pap 80 01/30/17 16:30 83 17 86/35 100 Bi-pap 80 01/30/17 16:00 84 01/30/17 16:00 98.3 82 17 85/34 100 Bi-pap 80 01/30/17 16:00 60 01/30/17 15:30 84 17 86/33 100 Bi-pap 80 01/30/17 15:00 82 18 85/40 100 Bi-pap 80 01/30/17 14:48 81 19 99 Facial 70 01/30/17 14:30 85 16 91/27 100 Bi-pap 80 01/30/17 14:02 83/30 01/30/17 14:00 90 17 80/30 100 Bi-pap 80 01/30/17 13:30 94 17 80/32 100 Bi-pap 80 01/30/17 13:11 70 01/30/17 13:00 87 17 95/41 100 Bi-pap 80 01/30/17 12:49 87 19 99 Facial 80 01/30/17 12:30 87 19 96/42 100 Bi-pap 80 01/30/17 12:00 98.4 86 19 80/42 96 Bi-pap 80 01/30/17 12:00 80 01/30/17 12:00 85 01/30/17 11:30 86 19 83/42 100 Bi-pap 80 01/30/17 11:04 87 18 99 Facial 80 01/30/17 11:00 86 19 94/49 100 Bi-pap 80 01/30/17 10:30 87 17 95/70 96 Bi-pap 80 01/30/17 10:00 82 16 90/39 98 Bi-pap 80 Intake and Output 01/30/17 01/31/17 19:00 07:00 Intake Total 1616.132 ml 2257.372 ml Output Total 200 ml 250 ml Balance 1416.132 ml 2007.372 ml Intake Free Water 50 ml IV Total 1036.132 ml 1617.372 ml Tube Feeding 480 ml 480 ml Other 50 ml 160 ml Output Urine Total 200 ml 250 ml # Voids 190 # Bowel Movements 1 General Appearance: no acute distress HEENT: normocephalic Respiratory/Chest: chest wall non-tender, lungs clear Cardiovascular: normal peripheral pulses, normal rate Abdomen: normal bowel sounds Microbiology Date/Time Source Procedure Growth Status 01/28/17 13:30 Wound Gram Stain - Final Resulted 01/28/17 13:30 Wound Culture - Preliminary Gram Negative Bacillus 1 Usual Skin Sylvia Resulted Laboratory Tests 01/31/17 05:00: White Blood Count 10.6, Red Blood Count 2.56L, Hemoglobin 7.8L, Hematocrit 25.7L , Mean Corpuscular Volume 100H, Mean Corpuscular Hemoglobin 30.4, Mean Corpuscular Hemoglobin Concent 30.3L, Red Cell Distribution Width 16.7H, Platelet Count 168, Mean Platelet Volume 7.4, Neutrophils (%) (Auto) , Lymphocytes (%) (Auto) , Monocytes (%) (Auto) , Eosinophils (%) (Auto) , Basophils (%) (Auto) , Differential Total Cells Counted 100, Neutrophils % ( Manual) 70, Lymphocytes % (Manual) 11L, Monocytes % (Manual) 3, Eosinophils % ( Manual) 0, Basophils % (Manual) 0, Band Neutrophils 16H, Platelet Estimate Adequate, Platelet Morphology Normal, Hypochromasia 1+, Anisocytosis 1+, Sodium Level 155H, Potassium Level 4.6, Chloride Level 119H, Carbon Dioxide Level 27, Anion Gap 9, Blood Urea Nitrogen 1L, Creatinine < 0.2L, Estimat Glomerular Filtration Rate , Glucose Level 105, Calcium Level 6.9L, Magnesium Level 2.7H, Total Bilirubin 0.2, Aspartate Amino Transf (AST/SGOT) 101H, Alanine Aminotransferase (ALT/SGPT) 43, Alkaline Phosphatase 63, Troponin I 0.252H, Total Protein 5.9L, Albumin 0.7L, Globulin 5.2, Albumin/Globulin Ratio 0.1L Current Medications Medications (Trade) Dose Ordered Sig/Yamini Route PRN Reason Start Time Stop Time Status Last Admin Dose Admin Acetaminophen (Tylenol) 650 mg Q4H PRN ORAL Mild Pain/Temp > 100.5 01/30/17 03:30 02/26/17 19:29 Atorvastatin Calcium (Lipitor) 20 mg BEDTIME GT 01/30/17 21:00 02/26/17 20:59 01/30/17 21:02 Cefepime HCl 1 gm/ Dextrose 55 ml @ 110 mls/hr Q24H IVPB 01/31/17 09:00 1/2/18 08:59 01/31/17 09:28 Clindamycin HCl/ Dextrose 50 ml @ 100 mls/hr Q8HR IV 01/30/17 06:00 02/05/17 21:59 01/31/17 05:37 Dopamine HCl/ Dextrose 250 ml @ 0 mls/hr Q24H IV 01/30/17 13:45 03/01/17 13:44 01/31/17 00:11 Lansoprazole (Prevacid) 30 mg DAILY GT 01/30/17 09:00 02/27/17 08:59 01/31/17 09:30 Multivitamins (Multivitamins W/ Minerals 15ml Liquid) 15 ml DAILY GT 01/30/17 09:00 02/27/17 08:59 01/31/17 09:30 Oxybutynin Chloride (Ditropan) 10 mg DAILY GT 01/30/17 09:00 02/27/17 08:59 01/31/17 09:30 Quetiapine Fumarate (SEROquel) 12.5 mg DAILY GT 01/30/17 09:00 02/27/17 08:59 01/31/17 09:29 Sodium Chloride 1,000 ml @ 125 mls/hr Q8H IV 01/30/17 18:30 03/01/17 18:29 01/31/17 01:50 Valproic Acid (Depakene) 500 mg Q12HR GT 01/30/17 09:00 02/26/17 20:59 01/31/17 09:29 Arnoldo Galeana MD Jan 31, 2017 09:33
--- NOTE | 2017-01-31 12:28 | Infectious Diseases Prog Note ---
Assessment/Plan Problems: (1) HCAP (healthcare-associated pneumonia) Assessment & Plan: with B/L infiltrates , await sputum culture and screening for influenza, on clindamycin and cefepime empiric coverage, will switch clindamycin back to vancomycin since her creatinine improved (2) UTI (urinary tract infection) Assessment & Plan: due to proteus mirabilis , pansensitive , on cefepime empiric coverage (3) Sepsis Assessment & Plan: due to the above, blood culture grew coag negative staph in one set , most likely contaminant , already on clindamycin and cefepime, will switch back to vancomycin, and stop clindamycin (4) ANA ROSA (acute kidney injury) Assessment & Plan: due to sepsis , continue hydration and monitor urine out put , nephrology is following (5) Wound, open, hip or thigh Assessment & Plan: already on wide spectrum antibiotics coverage , culture grew gram negative bacillus , continue local wound care and dressing change as per wound care service , continue off loading (6) Acute respiratory failure Assessment & Plan: due to the above, continue high flow oxygen, monitor ABG, and CXR (7) Dehydration Assessment & Plan: continue IVF for hydration , monitor urine output and electrolytes (8) Acute conjunctivitis of both eyes Assessment & Plan: will start cipro eye drops in both eyes Subjective ROS Limited/Unobtainable: Yes Allergies: Coded Allergies: IODINE (Verified Allergy, Unknown, 01/27/17) Subjective she was on BIBAP, comfortable , not in distress, unresponsive to verbal commands , still hypotensive on dopamin drip, afebrile Objective Vital Signs Last 24 Hour Vital Signs Date Time Temp Pulse Resp B/P (MAP) Pulse Ox O2 Delivery O2 Flow Rate FiO2 01/31/17 10:44 91 22 99 Full Face 30 01/31/17 10:30 21 105/45 Bi-pap 30 01/31/17 10:00 21 97/38 93 Bi-pap 30 01/31/17 09:30 20 100/42 Bi-pap 30 01/31/17 09:00 28 99/44 Bi-pap 30 01/31/17 08:53 84 19 100 Full Face 30 01/31/17 08:30 35 95/40 91 Bi-pap 30 01/31/17 08:01 89 21 99 Full Face 30 01/31/17 08:00 33 97/39 91 Bi-pap 30 01/31/17 08:00 Bi-pap 30 01/31/17 08:00 90 01/31/17 07:47 99 Bi-pap 60 01/31/17 06:30 85 37 97/40 97 Bi-pap 30 01/31/17 06:00 89 37 91/42 97 Bi-pap 30 01/31/17 05:30 90 33 97/39 97 Bi-pap 30 01/31/17 05:30 84 19 98 Full Face 30 01/31/17 05:00 89 19 96/43 99 Bi-pap 30 01/31/17 04:30 89 18 98/38 100 Bi-pap 30 01/31/17 04:15 85 18 100/44 100 Bi-pap 30 01/31/17 04:00 30 01/31/17 04:00 98.1 86 18 97/47 100 Bi-pap 30 01/31/17 04:00 85 01/31/17 03:45 88 18 88/37 100 Bi-pap 30 01/31/17 03:30 92 18 99/61 100 Bi-pap 30 01/31/17 03:15 87 18 76/41 100 Bi-pap 30 01/31/17 03:14 81 19 100 Full Face 30 01/31/17 03:00 83 18 86/32 100 Bi-pap 30 01/31/17 02:30 86 18 84/31 100 Bi-pap 30 01/31/17 02:00 87 18 91/29 100 Bi-pap 30 01/31/17 01:30 86 18 88/32 100 Bi-pap 30 01/31/17 01:23 83 17 100 Facial 30 01/31/17 01:00 83 18 91/34 100 Bi-pap 30 01/31/17 00:30 81 17 92/32 100 Bi-pap 30 01/31/17 00:11 83/40 01/31/17 00:00 98.3 82 17 83/40 100 Bi-pap 30 01/31/17 00:00 91 01/31/17 00:00 30 01/30/17 23:30 91 17 100 Facial 60 01/30/17 23:30 93 17 90/36 100 Bi-pap 60 01/30/17 23:00 92 17 95/37 100 Bi-pap 60 01/30/17 22:30 90 17 96/41 100 Bi-pap 60 01/30/17 22:00 88 18 85/37 100 Bi-pap 60 01/30/17 21:30 90 18 100/42 100 Bi-pap 60 01/30/17 21:30 92 20 100 Facial 60 01/30/17 21:00 98 18 101/37 100 Bi-pap 60 01/30/17 20:30 93 19 96/39 100 Bi-pap 60 01/30/17 20:00 93 19 97/41 100 Bi-pap 60 01/30/17 20:00 93 01/30/17 20:00 60 01/30/17 19:30 Bi-pap 01/30/17 19:30 100 Bi-pap 60 01/30/17 19:30 90 18 100 Facial 60 01/30/17 19:30 98.3 91 19 109/45 100 Bi-pap 60 01/30/17 19:00 92 17 98/45 100 Bi-pap 60 01/30/17 18:00 90 17 85/39 100 Bi-pap 60 01/30/17 17:30 88 18 89/40 100 Bi-pap 60 01/30/17 17:02 84 15 99 Facial 60 01/30/17 17:00 84 17 84/36 100 Bi-pap 80 01/30/17 16:30 83 17 86/35 100 Bi-pap 80 01/30/17 16:00 84 01/30/17 16:00 98.3 82 17 85/34 100 Bi-pap 80 01/30/17 16:00 60 01/30/17 15:30 84 17 86/33 100 Bi-pap 80 01/30/17 15:00 82 18 85/40 100 Bi-pap 80 01/30/17 14:48 81 19 99 Facial 70 01/30/17 14:30 85 16 91/27 100 Bi-pap 80 01/30/17 14:02 83/30 01/30/17 14:00 90 17 80/30 100 Bi-pap 80 01/30/17 13:30 94 17 80/32 100 Bi-pap 80 01/30/17 13:11 70 01/30/17 13:00 87 17 95/41 100 Bi-pap 80 01/30/17 12:49 87 19 99 Facial 80 01/30/17 12:30 87 19 96/42 100 Bi-pap 80 Height (Feet): 5 Height (Inches): 3.00 Weight (Pounds): 115 General Appearance: WD/WN, no acute distress HEENT: normocephalic, atraumatic, anicteric, supple, no JVD Respiratory/Chest: chest wall non-tender, no respiratory distress, no accessory muscle use, decreased breath sounds, crackles/rales Cardiovascular: normal peripheral pulses, normal rate, regular rhythm, no gallop/murmur, no JVD Abdomen: normal bowel sounds, soft, non tender, no organomegaly, non distended , no mass, no scars, other - G tube site looks intact Extremities: no cyanosis, no clubbing Skin: no rash, no lesions, no ulcers Neurologic/Psychiatric: unresponsiveness Microbiology Date/Time Source Procedure Growth Status 01/28/17 13:30 Wound Gram Stain - Final Resulted 01/28/17 13:30 Wound Culture - Preliminary Gram Negative Bacillus 1 Usual Skin Sylvia Resulted Laboratory Tests Test 01/31/17 05:00 01/31/17 09:33 White Blood Count 10.6 K/UL (4.8-10.8) Red Blood Count 2.56 M/UL (4.20-5.40) L Hemoglobin 7.8 G/DL (12.0-16.0) L Hematocrit 25.7 % (37.0-47.0) L Mean Corpuscular Volume 100 FL (80-99) H Mean Corpuscular Hemoglobin 30.4 PG (27.0-31.0) Mean Corpuscular Hemoglobin Concent 30.3 G/DL (32.0-36.0) L Red Cell Distribution Width 16.7 % (11.6-14.8) H Platelet Count 168 K/UL (150-450) Mean Platelet Volume 7.4 FL (6.5-10.1) Neutrophils (%) (Auto) % (45.0-75.0) Lymphocytes (%) (Auto) % (20.0-45.0) Monocytes (%) (Auto) % (1.0-10.0) Eosinophils (%) (Auto) % (0.0-3.0) Basophils (%) (Auto) % (0.0-2.0) Differential Total Cells Counted 100 Neutrophils % (Manual) 70 % (45-75) Lymphocytes % (Manual) 11 % (20-45) L Monocytes % (Manual) 3 % (1-10) Eosinophils % (Manual) 0 % (0-3) Basophils % (Manual) 0 % (0-2) Band Neutrophils 16 % (0-8) H Platelet Estimate Adequate Platelet Morphology Normal Hypochromasia 1+ Anisocytosis 1+ Sodium Level 155 MMOL/L (136-145) H Potassium Level 4.6 MMOL/L (3.5-5.1) Chloride Level 119 MMOL/L (98-107) H Carbon Dioxide Level 27 MMOL/L (21-32) Anion Gap 9 mmol/L (5-15) Blood Urea Nitrogen 1 mg/dL (7-18) L Creatinine < 0.2 MG/DL (0.55-1.30) L Estimat Glomerular Filtration Rate mL/min (>60) Glucose Level 105 MG/DL (74-106) Calcium Level 6.9 MG/DL (8.5-10.1) L Magnesium Level 2.7 MG/DL (1.8-2.4) H Total Bilirubin 0.2 MG/DL (0.2-1.0) Aspartate Amino Transf (AST/SGOT) 101 U/L (15-37) H Alanine Aminotransferase (ALT/SGPT) 43 U/L (12-78) Alkaline Phosphatase 63 U/L (46-116) Troponin I 0.252 ng/mL (0.000-0.056) Total Protein 5.9 G/DL (6.4-8.2) L Albumin 0.7 G/DL (3.4-5.0) L Globulin 5.2 g/dL Albumin/Globulin Ratio 0.1 (1.0-2.7) L Arterial Blood pH 7.361 (7.350-7.450) Arterial Blood Partial Pressure CO2 48.6 mmHg (35.0-45.0) H Arterial Blood Partial Pressure O2 76.3 mmHg (75.0-100.0) Arterial Blood HCO3 26.9 mmol/L (22.0-26.0) H Arterial Blood Oxygen Saturation 94.7 % (92.0-98.0) Arterial Blood Base Excess 1.2 Nelson Test Positive Current Medications Medications (Trade) Dose Ordered Sig/Yamini Route PRN Reason Start Time Stop Time Status Last Admin Dose Admin Acetaminophen (Tylenol) 650 mg Q4H PRN ORAL Mild Pain/Temp > 100.5 01/30/17 03:30 02/26/17 19:29 Atorvastatin Calcium (Lipitor) 20 mg BEDTIME GT 01/30/17 21:00 02/26/17 20:59 01/30/17 21:02 Cefepime HCl 1 gm/ Dextrose 55 ml @ 110 mls/hr Q24H IVPB 01/31/17 09:00 02/07/17 08:59 01/31/17 09:28 Clindamycin HCl/ Dextrose 50 ml @ 100 mls/hr Q8HR IV 01/30/17 06:00 02/05/17 21:59 01/31/17 05:37 Dopamine HCl/ Dextrose 250 ml @ 0 mls/hr Q24H IV 01/30/17 13:45 03/01/17 13:44 01/31/17 00:11 Lansoprazole (Prevacid) 30 mg DAILY GT 01/30/17 09:00 02/27/17 08:59 01/31/17 09:30 Multivitamins (Multivitamins W/ Minerals 15ml Liquid) 15 ml DAILY GT 01/30/17 09:00 02/27/17 08:59 01/31/17 09:30 Oxybutynin Chloride (Ditropan) 10 mg DAILY GT 01/30/17 09:00 02/27/17 08:59 01/31/17 09:30 Quetiapine Fumarate (SEROquel) 12.5 mg DAILY GT 01/30/17 09:00 02/27/17 08:59 01/31/17 09:29 Sodium Chloride 1,000 ml @ 125 mls/hr Q8H IV 01/30/17 18:30 03/01/17 18:29 01/31/17 11:15 Valproic Acid (Depakene) 500 mg Q12HR GT 01/30/17 09:00 02/26/17 20:59 01/31/17 09:29 Lino Barclay M.D. Jan 31, 2017 12:28
[2017-01-31] MEDS ORDERED: Sterile Water Irrig 1000ml IRRIG ONE (17:02)
[2017-01-31] MEDS ORDERED: 1/2 NS 1000ml IV ONE (17:02)
[2017-01-31] MEDS: Ciprofloxacin Opth Soln 2.5ml BOTH EYES SCH ×2 (17:38→20:41)
[2017-01-31] MEDS: Atorvastatin 20mg tab GT SCH (20:38)
--- NOTE | 2017-01-31 22:00 | Progress Note ---
DATE: 01/31/2017 SUBJECTIVE: This is an 86-year-old female, who is currently on BiPAP and Levophed drip. The patient is currently nonverbal. She is still critically sick. OBJECTIVE: VITAL SIGNS: Blood pressure 100/40, pulse 74, and respirations 18. HEENT: Eyes are closed. NECK: Supple. CHEST: Bilateral decreased breath sounds. CARDIOVASCULAR: Regular rhythm. No gallop. No murmur. ABDOMEN: Soft. EXTREMITIES: CCE. ASSESSMENT: 1. Sepsis. 2. Acute respiratory failure. 3. Aspiration pneumonia. 4. Hypertension. PLAN: Continue IV fluid. Levophed drip. Decrease IV fluid and continue antibiotic. Continue bronchodilator treatments and BiPAP. Pulmonary is on case. Alin Peter M.D. DR: TORIBIO JOB#: [id number] CC:
[2017-02-01] VITALS (37 sets, daily range): BP systolic 78–127; BP diastolic 31–81
[2017-02-01] MEDS: Ciprofloxacin Opth Soln 2.5ml BOTH EYES SCH ×6 (01:23→21:00)
[2017-02-01] MEDS: DOPamine 400mg/250ml 250 ML IV SCH (01:23)
--- NOTE | 2017-02-01 04:30 | Progress Note ---
DATE: 01/31/2017 CARDIOLOGY PROGRESS NOTE SUBJECTIVE: The patient remains on pressor support in the intensive care unit. OBJECTIVE: VITAL SIGNS: Blood pressure 97/40, heart rate 85, and respiratory rate 37. Periodically on BiPAP. Remains on dopamine. LUNGS: Bilateral breath sounds. Scattered rhonchi. HEART: Irregularly irregular rhythm. ABDOMEN: Soft. EXTREMITIES: Trace edema. LABORATORY DATA: Reviewed. IMPRESSION: 1. Septic shock. 2. Hypovolemia. 3. Dehydration. 4. Acute myocardial ischemia. 5. Paroxysmal atrial fibrillation, now with controlled ventricular response. 6. Acute respiratory failure. PLAN: 1. Continue hypotonic hydration. 2. BiPAP support as needed. 3. Antimicrobials and skin care. 4. Taper off dopamine. 5. Continue to hold antihypertensives. David Abreu M.D. DR: GODWIN JOB#: [id number] CC:
[2017-02-01] MEDS: Clindamycin 600mg 50 ML IV SCH ×3 (05:44→21:02)
[2017-02-01 05:55] LABS: ANION GAP 8 mmol/L (5-15); BLOOD UREA NITROGEN 112 mg/dL (7-18); CALCIUM 6.9 MG/DL (8.5-10.1); CARBON DIOXIDE 26 MMOL/L (21-32); CHLORIDE 116 MMOL/L (98-107); CREATININE 2.3 MG/DL (0.55-1.30); SODIUM 150 MMOL/L (136-145)
--- NOTE | 2017-02-01 07:53 | Pulmonology Progress Note ---
Assessment/Plan Assessment/Plan 1. Pneumonia. 2. Sepsis with shock. 3. Acute myocardial ischemia. 4. Atrial fibrillation with rapid ventricular response. 5. Right hip wound. 6. Anemia. 7. Hypoxemia. 8. Acute respiratory failure. 9. Hypovolemia. 10. Dehydration, ANA ROSA/CKD PLAN: On Dopamine BiPAP support. Broad-spectrum antibiotics per ID prognosis poor repeat CXR, labs MALINDA Subjective ROS Limited/Unobtainable: Yes Allergies: Coded Allergies: IODINE (Verified Allergy, Unknown, 01/27/17) Objective Last 24 Hour Vital Signs Date Time Temp Pulse Resp B/P (MAP) Pulse Ox O2 Delivery O2 Flow Rate FiO2 02/01/17 07:00 86 25 100/45 99 Bi-pap 30 02/01/17 06:57 98 Bi-pap 30 02/01/17 06:57 Bi-pap 30 02/01/17 06:50 93 29 98 Full Face 30 02/01/17 06:15 89 25 106/43 99 Bi-pap 30 02/01/17 06:00 106 25 92/52 99 Bi-pap 30 02/01/17 05:45 91 25 102/43 99 Bi-pap 30 02/01/17 05:30 87 23 102/39 99 Bi-pap 30 02/01/17 05:15 87 22 104/40 99 Bi-pap 30 02/01/17 05:13 90 23 98/40 98 Bi-pap 30 02/01/17 05:00 88 23 104/42 99 Bi-pap 30 02/01/17 04:52 86 22 98 Full Face 30 02/01/17 04:45 88 22 99/41 99 Bi-pap 30 02/01/17 04:30 90 23 98/40 98 Bi-pap 30 02/01/17 04:15 94 23 110/32 98 Bi-pap 30 02/01/17 04:00 88 02/01/17 04:00 98.4 98 23 106/81 99 Bi-pap 30 02/01/17 03:45 92 23 96/39 99 Bi-pap 30 02/01/17 03:30 91 23 99/36 99 Bi-pap 30 02/01/17 03:24 82 20 100 Full Face 30 02/01/17 03:15 90 24 100/43 99 Bi-pap 30 02/01/17 03:00 90 24 104/40 99 Bi-pap 30 02/01/17 02:45 92 23 98/40 99 Bi-pap 30 02/01/17 02:30 93 23 106/37 99 Bi-pap 30 02/01/17 02:15 93 23 103/39 99 Bi-pap 30 02/01/17 02:00 93 23 101/36 99 Bi-pap 30 02/01/17 01:45 91 22 95/37 99 Bi-pap 30 02/01/17 01:30 89 21 93/34 100 Bi-pap 30 02/01/17 01:23 93/34 02/01/17 01:19 85 18 100 Full Face 30 02/01/17 01:15 88 21 78/38 100 Bi-pap 30 02/01/17 01:00 88 21 78/38 100 Bi-pap 30 02/01/17 00:00 98.1 87 23 99/31 98 Bi-pap 30 02/01/17 00:00 81 01/31/17 23:30 87 23 99/31 98 Bi-pap 30 01/31/17 23:07 84 20 100 Full Face 30 01/31/17 23:00 88 23 93/34 98 Bi-pap 30 01/31/17 22:30 88 23 85/36 100 Bi-pap 30 01/31/17 22:00 89 23 83/37 100 Bi-pap 40 01/31/17 21:30 86 21 92/39 100 Bi-pap 40 01/31/17 21:25 94 22 100 Full Face 40 01/31/17 21:00 86 20 93/36 100 Bi-pap 40 01/31/17 20:30 87 21 96/41 100 Bi-pap 40 01/31/17 20:08 Bi-pap 01/31/17 20:07 Bi-pap 01/31/17 20:00 89 22 93/43 100 Bi-pap 40 01/31/17 20:00 83 01/31/17 19:30 87 22 101/60 100 Bi-pap 40 01/31/17 19:05 85 26 100 Full Face 40 01/31/17 19:00 82 25 87/40 99 Bi-pap 40 01/31/17 18:45 86 25 82/37 83 Bi-pap 40 01/31/17 18:30 83 25 85/37 83 Bi-pap 40 01/31/17 18:15 81 25 85/37 83 Bi-pap 40 01/31/17 18:00 25 98/30 83 Bi-pap 40 01/31/17 17:45 16 92/67 83 Bi-pap 40 01/31/17 17:32 40 01/31/17 17:30 18 81/36 89 Bi-pap 40 01/31/17 17:30 83 01/31/17 17:20 87 22 97 Full Face 40 01/31/17 17:00 86 01/31/17 16:30 82 01/31/17 16:30 22 116/70 95 Bi-pap 60 01/31/17 16:00 97.9 86 01/31/17 16:00 91 01/31/17 16:00 22 99/48 100 Bi-pap 60 01/31/17 15:53 83 19 100 Full Face 30 01/31/17 15:30 21 99/48 86 Bi-pap 60 01/31/17 15:30 82 01/31/17 15:00 79 01/31/17 15:00 22 85/44 92 Bi-pap 60 01/31/17 14:30 87 01/31/17 14:30 24 109/48 84 Bi-pap 30 01/31/17 14:00 23 122/47 86 Bi-pap 30 01/31/17 14:00 89 01/31/17 13:44 83 19 100 Full Face 30 01/31/17 13:30 96 01/31/17 13:30 23 100/52 89 Bi-pap 30 01/31/17 13:00 92 01/31/17 13:00 22 101/48 91 Bi-pap 30 01/31/17 12:30 88 01/31/17 12:30 22 100/44 Bi-pap 30 01/31/17 12:00 22 99/41 94 Bi-pap 30 01/31/17 12:00 91 01/31/17 12:00 96 01/31/17 11:30 22 112/48 97 Bi-pap 30 01/31/17 11:30 90 01/31/17 11:00 88 01/31/17 11:00 20 107/39 99 Bi-pap 30 01/31/17 10:44 91 22 99 Full Face 30 01/31/17 10:30 21 105/45 Bi-pap 30 12/26/17 10:30 87 01/31/17 10:00 89 01/31/17 10:00 21 97/38 93 Bi-pap 30 01/31/17 09:30 20 100/42 Bi-pap 30 01/31/17 09:00 28 99/44 Bi-pap 30 01/31/17 09:00 90 01/31/17 08:53 84 19 100 Full Face 30 01/31/17 08:30 35 95/40 91 Bi-pap 30 01/31/17 08:30 87 01/31/17 08:01 89 21 99 Full Face 30 01/31/17 08:00 86 01/31/17 08:00 33 97/39 91 Bi-pap 30 01/31/17 08:00 Bi-pap 30 01/31/17 08:00 90 Intake and Output 01/31/17 02/01/17 19:00 07:00 Intake Total 2328.58 ml 1659.108 ml Output Total 675 ml 485 ml Balance 1653.58 ml 1174.108 ml Intake Free Water 30 ml 150 ml IV Total 1628.58 ml 1029.108 ml Tube Feeding 480 ml 480 ml Other 190 ml Output Urine Total 675 ml 485 ml # Bowel Movements 1 General Appearance: other - mild distress HEENT: normocephalic Respiratory/Chest: respiratory distress, accessory muscle use, rhonchi Cardiovascular: normal rate Extremities: other - ++ edema Laboratory Tests 01/31/17 09:33: Arterial Blood pH 7.361, Arterial Blood Partial Pressure CO2 48.6H, Arterial Blood Partial Pressure O2 76.3, Arterial Blood HCO3 26.9H, Arterial Blood Oxygen Saturation 94.7, Arterial Blood Base Excess 1.2, Nelson Test Positive 02/01/17 05:10: Sodium Level 150H, Potassium Level 4.0, Chloride Level 116H, Carbon Dioxide Level 26, Anion Gap 8, Blood Urea Nitrogen 112#H, Creatinine 2.3#H, Estimat Glomerular Filtration Rate , Glucose Level 145H, Calcium Level 6.9L Current Medications Medications (Trade) Dose Ordered Sig/Yamini Route PRN Reason Start Time Stop Time Status Last Admin Dose Admin Acetaminophen (Tylenol) 650 mg Q4H PRN ORAL Mild Pain/Temp > 100.5 01/30/17 03:30 02/26/17 19:29 Atorvastatin Calcium (Lipitor) 20 mg BEDTIME GT 01/30/17 21:00 02/26/17 20:59 01/31/17 20:38 Cefepime HCl 1 gm/ Dextrose 55 ml @ 110 mls/hr Q24H IVPB 01/31/17 09:00 02/07/17 08:59 01/31/17 09:28 Ciprofloxacin (Ciloxan Opth Soln) 1 drop Q4HR BOTH EYES 01/31/17 17:00 02/07/17 16:59 02/01/17 05:44 Clindamycin HCl/ Dextrose 50 ml @ 100 mls/hr Q8HR IV 01/30/17 06:00 02/05/17 21:59 02/01/17 05:44 Dopamine HCl/ Dextrose 250 ml @ 0 mls/hr Q24H IV 01/30/17 13:45 03/01/17 13:44 02/01/17 01:23 Lansoprazole (Prevacid) 30 mg DAILY GT 01/30/17 09:00 02/27/17 08:59 01/31/17 09:30 Multivitamins (Multivitamins W/ Minerals 15ml Liquid) 15 ml DAILY GT 01/30/17 09:00 02/27/17 08:59 01/31/17 09:30 Oxybutynin Chloride (Ditropan) 10 mg DAILY GT 01/30/17 09:00 02/27/17 08:59 01/31/17 09:30 Quetiapine Fumarate (SEROquel) 12.5 mg DAILY GT 01/30/17 09:00 02/27/17 08:59 01/31/17 09:29 Sodium Chloride 1,000 ml @ 75 mls/hr [id number] IV 01/31/17 18:30 03/02/17 18:29 02/01/17 05:45 Valproic Acid (Depakene) 500 mg Q12HR GT 01/30/17 09:00 02/26/17 20:59 01/31/17 20:38 JOMAR CARRANZA Feb 01, 2017 07:53
[2017-02-01] MEDS: Valproic Acid 250mg/5ml Liquid GT SCH ×2 (08:17→20:59)
[2017-02-01] MEDS: Oxybutynin 5mg tab GT SCH (08:18)
[2017-02-01] MEDS: Cefepime 1gm in D5W 55ml IVPB SCH (08:18)
[2017-02-01] MEDS: Multivitamins W/Minerals 15 ML UDC GT SCH (08:18)
--- NOTE | 2017-02-01 11:13 | Wound Care Consultation ---
Wound Assessment Wound Assessment #1: Wound Number: 1 Wound Present on Admission: No New Wound: Yes Status Change of Wound: No Wound Location Body Site Modif: right, upper Wound Location Body Site: arm Wound Type: blister - blood filled Janet Test: Does not Janet Wound Thickness: Full Thickness Wound Length: 1.0 Wound Width: 3.0 Wound Depth: utd Percent of Wound Purple/Maroon: 100 Wound Drainage Amount: None Wound Drainage Odor: None/Absent Tissue Surrounding Wound: Intact Wound General Appearance: Reddened Wound Assessment #2: Wound Number: 2 Wound Present on Admission: No New Wound: Yes Status Change of Wound: No Wound Location Body Site Modif: left Wound Location Body Site: frontal region Wound Type: pressure ulcer Janet Test: Does not Janet Pressure Ulcer Stage: II - blister revealing self to stage 2 Wound Thickness: Partial Thickness Wound Length: 1.5 Wound Width: 4.0 Wound Depth: less than 0.1 Percent of Wound [place]/Red: 100 Wound Drainage Amount: Scant Wound Drainage Odor: None/Absent Tissue Surrounding Wound: Erythemic Wound General Appearance: Reddened, Draining Wound Assessment #3: Wound Number: 3 Wound Present on Admission: No New Wound: Yes Status Change of Wound: No Wound Location Body Site Modif: right, lateral Wound Location Body Site: trochanter Wound Type: pressure ulcer Janet Test: Does not Janet Pressure Ulcer Stage: II Wound Thickness: Partial Thickness Wound Length: 4.0 Wound Width: 3.0 Percent of Wound [place]/Red: 100 Wound Drainage Description: Serous - serous filled Wound Drainage Amount: None Wound Drainage Odor: None/Absent Tissue Surrounding Wound: Intact Wound General Appearance: Reddened Wound Assessment #4: Wound Number: 4 Wound Present on Admission: No New Wound: Yes Status Change of Wound: No Wound Location Body Site Modif: right Wound Location Body Site: frontal region Wound Type: blister - serous filled Janet Test: Does not Janet Wound Thickness: Partial Thickness Wound Length: 1.0 Wound Width: 1.0 Percent of Wound [place]/Red: 100 Wound Drainage Amount: None Wound Drainage Odor: None/Absent Tissue Surrounding Wound: Intact Wound General Appearance: Reddened Wound Comment #1 Right upper arm fluid filled blister. #2 Left frontal region fluid blister revealing self to stage 2 . #3 Right lateral trochanter fluid filled blister. #4 Right frontal region fluid filled blister. Recommendation -Local wound care as ordered. -Keep clean and dry. -Turn and reposition. -Offload affected area. -Avoid shear and friction -Assess and follow up with MD for any further change of condition to skin. JENNIFER RAMÍREZ Feb 01, 2017 11:13
--- NOTE | 2017-02-01 15:44 | Infectious Diseases Prog Note ---
Assessment/Plan Problems: (1) HCAP (healthcare-associated pneumonia) Assessment & Plan: with B/L infiltrates , await sputum culture , screening for influenza was not done , on clindamycin and cefepime empiric coverage, pending other cultures result (2) UTI (urinary tract infection) Assessment & Plan: due to proteus mirabilis , pansensitive , on cefepime empiric coverage (3) Sepsis Assessment & Plan: due to the above, blood culture grew coag negative staph in one set , most likely contaminant , already on clindamycin and cefepime, pending culture (4) ANA ROSA (acute kidney injury) Assessment & Plan: due to sepsis , continue hydration and monitor urine out put , nephrology is following (5) Wound, open, hip or thigh Assessment & Plan: already on wide spectrum antibiotics coverage , culture grew gram negative bacillus , continue local wound care and dressing change as per wound care service , continue off loading (6) Acute respiratory failure Assessment & Plan: due to the above, continue high flow oxygen, monitor ABG, and CXR (7) Dehydration Assessment & Plan: continue IVF for hydration , monitor urine output and electrolytes (8) Acute conjunctivitis of both eyes Assessment & Plan: on cipro eye drops in both eyes Subjective ROS Limited/Unobtainable: Yes Allergies: Coded Allergies: IODINE (Verified Allergy, Unknown, 01/27/17) Subjective she was still on BIBAP machine , comfortable , not in distress, unresponsive to verbal commands, afebrile Objective Vital Signs Last 24 Hour Vital Signs Date Time Temp Pulse Resp B/P (MAP) Pulse Ox O2 Delivery O2 Flow Rate FiO2 02/01/17 15:27 98.5 102 23 121/59 99 Bi-pap 30 02/01/17 15:27 102 02/01/17 15:07 92 28 97 Full Face 30 02/01/17 13:07 92 24 99 Full Face 30 02/01/17 12:30 99 25 119/51 99 Bi-pap 30 02/01/17 12:00 98.7 93 25 114/52 99 Bi-pap 30 02/01/17 12:00 111 02/01/17 12:00 30 02/01/17 11:30 92 25 106/56 99 Bi-pap 30 02/01/17 11:00 86 25 113/51 99 Bi-pap 30 02/01/17 10:57 92 29 99 Full Face 30 02/01/17 10:30 93 25 104/50 99 Bi-pap 30 02/01/17 10:00 86 25 110/56 99 Bi-pap 30 02/01/17 09:30 99 27 112/49 99 Bi-pap 30 02/01/17 09:00 95 26 104/43 99 Bi-pap 30 02/01/17 08:56 99 18 97 Full Face 30 02/01/17 08:30 100 29 127/43 99 Bi-pap 30 02/01/17 08:00 30 02/01/17 08:00 95 02/01/17 08:00 99.1 93 29 118/43 99 Bi-pap 30 02/01/17 07:00 86 25 100/45 99 Bi-pap 30 02/01/17 06:57 98 Bi-pap 30 02/01/17 06:57 Bi-pap 30 02/01/17 06:50 93 29 98 Full Face 30 02/01/17 06:15 89 25 106/43 99 Bi-pap 30 02/01/17 06:00 106 25 92/52 99 Bi-pap 30 02/01/17 05:45 91 25 102/43 99 Bi-pap 30 02/01/17 05:30 87 23 102/39 99 Bi-pap 30 02/01/17 05:15 87 22 104/40 99 Bi-pap 30 02/01/17 05:13 90 23 98/40 98 Bi-pap 30 02/01/17 05:00 88 23 104/42 99 Bi-pap 30 02/01/17 04:52 86 22 98 Full Face 30 02/01/17 04:45 88 22 99/41 99 Bi-pap 30 02/01/17 04:30 90 23 98/40 98 Bi-pap 30 02/01/17 04:15 94 23 110/32 98 Bi-pap 30 02/01/17 04:00 88 02/01/17 04:00 98.4 98 23 106/81 99 Bi-pap 30 02/01/17 03:45 92 23 96/39 99 Bi-pap 30 02/01/17 03:30 91 23 99/36 99 Bi-pap 30 02/01/17 03:24 82 20 100 Full Face 30 02/01/17 03:15 90 24 100/43 99 Bi-pap 30 02/01/17 03:00 90 24 104/40 99 Bi-pap 30 02/01/17 02:45 92 23 98/40 99 Bi-pap 30 02/01/17 02:30 93 23 106/37 99 Bi-pap 30 02/01/17 02:15 93 23 103/39 99 Bi-pap 30 02/01/17 02:00 93 23 101/36 99 Bi-pap 30 02/01/17 01:45 91 22 95/37 99 Bi-pap 30 02/01/17 01:30 89 21 93/34 100 Bi-pap 30 02/01/17 01:23 93/34 02/01/17 01:19 85 18 100 Full Face 30 02/01/17 01:15 88 21 78/38 100 Bi-pap 30 02/01/17 01:00 88 21 78/38 100 Bi-pap 30 02/01/17 00:00 98.1 87 23 99/31 98 Bi-pap 30 02/01/17 00:00 81 01/31/17 23:30 87 23 99/31 98 Bi-pap 30 01/31/17 23:07 84 20 100 Full Face 30 01/31/17 23:00 88 23 93/34 98 Bi-pap 30 01/31/17 22:30 88 23 85/36 100 Bi-pap 30 01/31/17 22:00 89 23 83/37 100 Bi-pap 40 01/31/17 21:30 86 21 92/39 100 Bi-pap 40 01/31/17 21:25 94 22 100 Full Face 40 01/31/17 21:00 86 20 93/36 100 Bi-pap 40 01/31/17 20:30 87 21 96/41 100 Bi-pap 40 01/31/17 20:08 Bi-pap 01/31/17 20:07 Bi-pap 01/31/17 20:00 89 22 93/43 100 Bi-pap 40 01/31/17 20:00 83 01/31/17 19:30 87 22 101/60 100 Bi-pap 40 01/31/17 19:05 85 26 100 Full Face 40 01/31/17 19:00 82 25 87/40 99 Bi-pap 40 01/31/17 18:45 86 25 82/37 83 Bi-pap 40 01/31/17 18:30 83 25 85/37 83 Bi-pap 40 01/31/17 18:15 81 25 85/37 83 Bi-pap 40 01/31/17 18:00 25 98/30 83 Bi-pap 40 01/31/17 17:45 16 92/67 83 Bi-pap 40 01/31/17 17:32 40 01/31/17 17:30 18 81/36 89 Bi-pap 40 01/31/17 17:30 83 01/31/17 17:20 87 22 97 Full Face 40 01/31/17 17:00 86 01/31/17 16:30 82 01/31/17 16:30 22 116/70 95 Bi-pap 60 01/31/17 16:00 97.9 86 01/31/17 16:00 91 01/31/17 16:00 22 99/48 100 Bi-pap 60 01/31/17 15:53 83 19 100 Full Face 30 Height (Feet): 5 Height (Inches): 3.00 Weight (Pounds): 115 General Appearance: WD/WN, no acute distress HEENT: normocephalic, atraumatic, anicteric, supple, no JVD Respiratory/Chest: chest wall non-tender, no respiratory distress, no accessory muscle use, decreased breath sounds, crackles/rales Cardiovascular: normal peripheral pulses, normal rate, regular rhythm Abdomen: normal bowel sounds, soft, non tender, no organomegaly, non distended , no mass, no scars Extremities: no cyanosis, no clubbing Skin: no rash, no lesions, ulcers Neurologic/Psychiatric: alert, oriented x 3 Lymphatic: no neck adenopathy, no groin adenopathy Musculoskeletal: normal muscle bulk Laboratory Tests Test 02/01/17 05:10 Sodium Level 150 MMOL/L (136-145) H Potassium Level 4.0 MMOL/L (3.5-5.1) Chloride Level 116 MMOL/L (98-107) H Carbon Dioxide Level 26 MMOL/L (21-32) Anion Gap 8 mmol/L (5-15) Blood Urea Nitrogen 112 mg/dL (7-18) #H Creatinine 2.3 MG/DL (0.55-1.30) #H Estimat Glomerular Filtration Rate mL/min (>60) Glucose Level 145 MG/DL (74-106) H Calcium Level 6.9 MG/DL (8.5-10.1) L Current Medications Medications (Trade) Dose Ordered Sig/Yamini Route PRN Reason Start Time Stop Time Status Last Admin Dose Admin Acetaminophen (Tylenol) 650 mg Q4H PRN ORAL Mild Pain/Temp > 100.5 02/01/17 15:30 02/26/17 19:29 Atorvastatin Calcium (Lipitor) 20 mg BEDTIME GT 02/01/17 21:00 02/26/17 20:59 Cefepime HCl 1 gm/ Dextrose 55 ml @ 110 mls/hr Q24H IVPB 02/02/17 09:00 02/07/17 08:59 Ciprofloxacin (Ciloxan Opth Soln) 1 drop Q4HR BOTH EYES 02/01/17 17:00 02/08/17 16:59 Clindamycin HCl/ Dextrose 50 ml @ 100 mls/hr Q8HR IV 02/01/17 15:00 02/05/17 14:59 02/01/17 15:34 Lansoprazole (Prevacid) 30 mg DAILY GT 02/02/17 09:00 02/27/17 08:59 Multivitamins (Multivitamins W/ Minerals 15ml Liquid) 15 ml DAILY GT 02/02/17 09:00 02/27/17 08:59 Oxybutynin Chloride (Ditropan) 10 mg DAILY GT 02/02/17 09:00 02/27/17 08:59 Quetiapine Fumarate (SEROquel) 12.5 mg DAILY GT 02/02/17 09:00 02/27/17 08:59 Sodium Chloride 1,000 ml @ 75 mls/hr [id number] IV 02/01/17 15:00 03/02/17 14:59 02/01/17 14:40 Valproic Acid (Depakene) 500 mg Q12HR GT 02/01/17 21:00 02/26/17 20:59 Lino Barclay M.D. Feb 01, 2017 15:44
--- NOTE | 2017-02-01 17:30 | Progress Note ---
DATE: 02/01/2017 SUBJECTIVE: This is elderly female, who is currently nonverbal on non-rebreather BiPAP machine. OBJECTIVE: GENERAL: The patient is nonverbal, critically sick. VITAL SIGNS: Blood pressure is better. She is off dopamine drip. Her current blood pressure is 130/70, pulse 74, and respirations 18. SKIN: Good skin turgor. HEENT: AT/NC. EOMI. PERRLA NECK: Supple. No supraclavicular lymphadenopathy. Pharynx clear. Trachea midline. CHEST: Bilateral crackles. CARDIOVASCULAR: Regular rhythm. No gallop. No murmur. ABDOMEN: Soft. EXTREMITIES: CCE. NEUROLOGICAL: Generalized weakness. ASSESSMENT: 1. Chronic respiratory failure. 2. Aspiration pneumonia. 3. Sepsis. 4. Renal insufficiency. 5. Dehydration. PLAN: We will continue on step-down unit. The patient is a DNR. Continue BiPAP. Continue antibiotic. Continue G-tube. Continue supportive treatment. Alin Peter M.D. DR: Ghulam JOB#: [id number] CC:
[2017-02-01] MEDS: Atorvastatin 20mg tab GT SCH (20:59)
[2017-02-02] VITALS: BP 119/57
[2017-02-02] MEDS: Ciprofloxacin Opth Soln 2.5ml BOTH EYES SCH ×6 (01:05→21:00)
[2017-02-02 04:00] VITALS: BP 116/63
[2017-02-02] MEDS: Clindamycin 600mg 50 ML IV SCH ×3 (05:24→22:45)
--- NOTE | 2017-02-02 05:30 | Progress Note ---
DATE: 02/01/2017 CARDIOLOGY PROGRESS NOTE SUBJECTIVE: The patient's blood pressure is slowly improving. Pressor support continues, but is being tapered. The patient remains on broad-spectrum antibiotics and BiPAP support. OBJECTIVE: LUNGS: Coarse breath sounds. Scattered rhonchi. HEART: Irregularly irregular rhythm. Normal S1, S2. ABDOMEN: Soft. EXTREMITIES: No edema. LABORATORY DATA: Sodium 150, potassium 4, bicarbonate 26, BUN 112, and creatinine 2.3. IMPRESSION: 1. Acute renal failure, improving. 2. Dehydration and hypernatremia, slowly recovering. 3. Hypokalemia, corrected. 4. Acute myocardial infarction. 5. Sepsis with shock. 6. Remains critical and guarded. PLAN: 1. Continue hypotonic IV fluids. 2. Taper off pressors. 3. Antimicrobials. 4. BiPAP support as needed. 5. Hold antihypertensives. 6. Reassess for beta-gunnar once off pressors. 7. Maintain statin drug. 8. Add anti-platelet therapy if no signs of bleeding. Viky Hurley JOB#: [id number] CC:
[2017-02-02 06:07] LABS: HEMATOCRIT 24.3 % (37.0-47.0); HEMOGLOBIN 7.6 G/DL (12.0-16.0); MEAN CORPUSCULAR VOLUME 99 FL (80-99); PLATELET COUNT 137 K/UL (150-450); RED BLOOD COUNT 2.46 M/UL (4.20-5.40); RED CELL DISTRIBUTION WIDTH 16.2 % (11.6-14.8)
[2017-02-02 06:30] LABS: ALANINE AMINOTRANSFERASE 39 U/L (12-78); ALBUMIN 0.7 G/DL (3.4-5.0); ALBUMIN/GLOBULIN RATIO 0.1 (1.0-2.7); ALKALINE PHOSPHATASE 74 U/L (46-116); ANION GAP 9 mmol/L (5-15); ASPARTATE AMINO TRANSFERASE 69 U/L (15-37); BILIRUBIN,TOTAL 0.2 MG/DL (0.2-1.0); BLOOD UREA NITROGEN 106 mg/dL (7-18); CALCIUM 6.6 MG/DL (8.5-10.1); CARBON DIOXIDE 26 MMOL/L (21-32); CHLORIDE 115 MMOL/L (98-107); CREATININE 2.1 MG/DL (0.55-1.30); POTASSIUM 3.4 MMOL/L (3.5-5.1); SODIUM 150 MMOL/L (136-145)
[2017-02-02 08:00] VITALS: BP 128/58
[2017-02-02] MEDS: Valproic Acid 250mg/5ml Liquid GT SCH ×2 (08:20→22:46)
[2017-02-02] MEDS: Aspirin Baby 81mg NG SCH (08:21)
[2017-02-02] MEDS: Multivitamins W/Minerals 15 ML UDC GT SCH (08:21)
[2017-02-02] MEDS: Oxybutynin 5mg tab GT SCH (08:21)
[2017-02-02] MEDS: Cefepime HCl 1 GM in D5W 55 ML IVPB SCH (08:22)
--- NOTE | 2017-02-02 11:31 | Diagnostic Imaging Report ---
Indication: Reason For Exam: SOB Technique: One view of the chest Comparison: While 28/03/2016 Findings: Right perihilar atelectasis and infiltrate persists, appears increased. Right hilar prominence is again demonstrated. Increasingly nodular appearing interstitial disease is demonstrated in both lungs. The heart is borderline enlarged. Slight left costophrenic angle blunting may indicate a small amount of pleural fluid Impression: Persistent right perihilar atelectasis and infiltrate, appearing slightly increased from prior study of 01/27/2017 Background nodular interstitial opacities appear increased from the prior study may indicate developing nodular interstitial infiltrates or edema edema, other etiologies also possible Suspect small left pleural effusion Cardiomegaly
[2017-02-02 12:00] VITALS: BP 131/55
--- NOTE | 2017-02-02 12:05 | Pulmonology Progress Note ---
Assessment/Plan Assessment/Plan 1. Pneumonia. 2. Sepsis with shock. 3. Acute myocardial ischemia. 4. Atrial fibrillation with rapid ventricular response. 5. Right hip wound. 6. Anemia. 7. Hypoxemia. 8. Acute respiratory failure. 9. Hypovolemia. 10. Dehydration, ANA ROSA/CKD PLAN: Doing poorly BiPAP support. Broad-spectrum antibiotics per ID prognosis poor repeat CXR worse DNR/DNI Subjective ROS Limited/Unobtainable: Yes Allergies: Coded Allergies: IODINE (Verified Allergy, Unknown, 01/27/17) Objective Last 24 Hour Vital Signs Date Time Temp Pulse Resp B/P (MAP) Pulse Ox O2 Delivery O2 Flow Rate FiO2 02/02/17 10:44 98 Venturi Mask 10.0 45 02/02/17 10:44 Venturi Mask 45 02/02/17 09:29 87 20 98 Full Face 30 02/02/17 08:00 98.4 89 20 128/58 98 Bi-pap 40 02/02/17 08:00 88 02/02/17 07:26 88 17 97 Full Face 30 02/02/17 05:18 91 21 97 Full Face 30 02/02/17 04:00 97.9 91 23 116/63 96 Bi-pap 40 02/02/17 04:00 98 02/02/17 03:09 82 24 98 Full Face 30 02/02/17 00:35 96 23 98 Full Face 30 02/02/17 00:00 97.3 86 21 119/57 100 Bi-pap 40 02/02/17 00:00 83 02/01/17 22:59 85 24 96 Full Face 30 02/01/17 21:20 96 24 97 Full Face 30 02/01/17 20:05 22 96 Bi-pap 40 02/01/17 20:00 86 02/01/17 20:00 97.6 88 22 112/62 95 Bi-pap 30 02/01/17 18:45 83 21 95 Full Face 30 02/01/17 17:17 94 24 98 Full Face 30 02/01/17 15:27 98.5 102 23 121/59 99 Bi-pap 30 02/01/17 15:27 102 02/01/17 15:07 92 28 97 Full Face 30 02/01/17 13:07 92 24 99 Full Face 30 02/01/17 12:30 99 25 119/51 99 Bi-pap 30 Intake and Output 02/01/17 02/02/17 19:00 07:00 Intake Total 1646.737 ml 1687.5 ml Output Total 600 ml 550 ml Balance 1046.737 ml 1137.5 ml Intake Free Water 180 ml 200 ml IV Total 946.737 ml 1007.5 ml Tube Feeding 520 ml 480 ml Output Urine Total 600 ml 550 ml # Bowel Movements 1 General Appearance: no acute distress, other - lethargic HEENT: atraumatic Respiratory/Chest: rhonchi Cardiovascular: normal rate Laboratory Tests 02/02/17 04:15: White Blood Count 8.0, Red Blood Count 2.46L, Hemoglobin 7.6L, Hematocrit 24.3L , Mean Corpuscular Volume 99, Mean Corpuscular Hemoglobin 31.1H, Mean Corpuscular Hemoglobin Concent 31.4L, Red Cell Distribution Width 16.2H, Platelet Count 137L, Mean Platelet Volume 9.3, Neutrophils (%) (Auto) , Lymphocytes (%) (Auto) , Monocytes (%) (Auto) , Eosinophils (%) (Auto) , Basophils (%) (Auto) , Sodium Level 150H, Potassium Level 3.4L, Chloride Level 115H, Carbon Dioxide Level 26, Anion Gap 9, Blood Urea Nitrogen 106H, Creatinine 2.1H, Estimat Glomerular Filtration Rate , Glucose Level 131H, Calcium Level 6.6L, Total Bilirubin 0.2, Aspartate Amino Transf (AST/SGOT) 69H, Alanine Aminotransferase (ALT/SGPT) 39, Alkaline Phosphatase 74, Total Protein 6.0L, Albumin 0.7L, Globulin 5.3, Albumin/Globulin Ratio 0.1L Current Medications Medications (Trade) Dose Ordered Sig/Yamini Route PRN Reason Start Time Stop Time Status Last Admin Dose Admin Acetaminophen (Tylenol) 650 mg Q4H PRN ORAL Mild Pain/Temp > 100.5 02/01/17 15:30 02/26/17 19:29 Aspirin (ASA) 81 mg DAILY NG 02/02/17 09:00 03/04/17 08:59 02/02/17 08:21 Atorvastatin Calcium (Lipitor) 20 mg BEDTIME GT 02/01/17 21:00 02/26/17 20:59 02/01/17 20:59 Cefepime HCl 1 gm/ Dextrose 55 ml @ 110 mls/hr Q24H IVPB 02/02/17 09:00 02/07/17 08:59 02/02/17 08:22 Ciprofloxacin (Ciloxan Opth Soln) 1 drop Q4HR BOTH EYES 02/01/17 17:00 02/08/17 16:59 02/02/17 08:20 Clindamycin HCl/ Dextrose 50 ml @ 100 mls/hr Q8HR IV 02/01/17 15:00 02/05/17 14:59 02/02/17 05:24 Lansoprazole (Prevacid) 30 mg DAILY GT 02/02/17 09:00 02/27/17 08:59 02/02/17 08:21 Multivitamins (Multivitamins W/ Minerals 15ml Liquid) 15 ml DAILY GT 02/02/17 09:00 02/27/17 08:59 02/02/17 08:21 Oxybutynin Chloride (Ditropan) 10 mg DAILY GT 02/02/17 09:00 02/27/17 08:59 02/02/17 08:21 Quetiapine Fumarate (SEROquel) 12.5 mg DAILY GT 02/02/17 09:00 02/27/17 08:59 02/02/17 08:21 Sodium Chloride 1,000 ml @ 75 mls/hr [id number] IV 02/01/17 15:00 03/02/17 14:59 02/01/17 22:50 Valproic Acid (Depakene) 500 mg Q12HR GT 02/01/17 21:00 02/26/17 20:59 02/02/17 08:20 JOMAR CARRANZA Feb 02, 2017 12:05
--- NOTE | 2017-02-02 15:57 | Infectious Diseases Prog Note ---
Assessment/Plan Problems: (1) HCAP (healthcare-associated pneumonia) Assessment & Plan: with worsening infiltrates , suspect aspiration related , on clindamycin and cefepime empiric coverage, pending other cultures result , continue aspiration precaution, keep HOB elevated all the time more than 30 degree (2) UTI (urinary tract infection) Assessment & Plan: due to proteus mirabilis , pansensitive , on cefepime empiric coverage (3) Sepsis Assessment & Plan: due to the above, blood culture grew coag negative staph in one set , most likely contaminant , already on clindamycin and cefepime, pending culture (4) ANA ROSA (acute kidney injury) Assessment & Plan: due to sepsis , continue hydration and monitor urine out put , nephrology is following (5) Wound, open, hip or thigh Assessment & Plan: already on wide spectrum antibiotics coverage , culture grew gram negative bacillus , continue local wound care and dressing change as per wound care service , continue off loading (6) Acute respiratory failure Assessment & Plan: due to the above, continue high flow oxygen, monitor ABG, and CXR (7) Dehydration Assessment & Plan: continue IVF for hydration , monitor urine output and electrolytes (8) Acute conjunctivitis of both eyes Assessment & Plan: on cipro eye drops in both eyes Subjective ROS Limited/Unobtainable: Yes Allergies: Coded Allergies: IODINE (Verified Allergy, Unknown, 01/27/17) Subjective she is still on BIBAP machine , comfortable , not in distress, unresponsive to verbal commands, afebrile Objective Vital Signs Last 24 Hour Vital Signs Date Time Temp Pulse Resp B/P (MAP) Pulse Ox O2 Delivery O2 Flow Rate FiO2 02/02/17 12:00 94 02/02/17 12:00 98.0 71 18 131/55 98 Venturi Mask 45 02/02/17 10:44 98 Venturi Mask 10.0 45 02/02/17 10:44 Venturi Mask 45 02/02/17 09:29 87 20 98 Full Face 30 02/02/17 08:00 98.4 89 20 128/58 98 Bi-pap 40 02/02/17 08:00 88 02/02/17 07:26 88 17 97 Full Face 30 02/02/17 05:18 91 21 97 Full Face 30 02/02/17 04:00 97.9 91 23 116/63 96 Bi-pap 40 02/02/17 04:00 98 02/02/17 03:09 82 24 98 Full Face 30 02/02/17 00:35 96 23 98 Full Face 30 02/02/17 00:00 97.3 86 21 119/57 100 Bi-pap 40 02/02/17 00:00 83 02/01/17 22:59 85 24 96 Full Face 30 02/01/17 21:20 96 24 97 Full Face 30 02/01/17 20:05 22 96 Bi-pap 40 02/01/17 20:00 86 02/01/17 20:00 97.6 88 22 112/62 95 Bi-pap 30 02/01/17 18:45 83 21 95 Full Face 30 02/01/17 17:17 94 24 98 Full Face 30 Height (Feet): 5 Height (Inches): 3.00 Weight (Pounds): 115 General Appearance: WD/WN, no acute distress HEENT: normocephalic, atraumatic, anicteric, mucous membranes moist, EOMI, pharynx normal, supple, no JVD Respiratory/Chest: no respiratory distress, no accessory muscle use, decreased breath sounds, expiratory wheezing Cardiovascular: normal peripheral pulses, normal rate, regular rhythm, no gallop/murmur, no JVD Abdomen: normal bowel sounds, soft, non tender, no organomegaly, non distended , no mass, no scars Extremities: no cyanosis, no clubbing Skin: no rash, no lesions, ulcers - right hip wound with ulcer and eschar Neurologic/Psychiatric: unresponsiveness Laboratory Tests Test 02/02/17 04:15 White Blood Count 8.0 K/UL (4.8-10.8) Red Blood Count 2.46 M/UL (4.20-5.40) L Hemoglobin 7.6 G/DL (12.0-16.0) L Hematocrit 24.3 % (37.0-47.0) L Mean Corpuscular Volume 99 FL (80-99) Mean Corpuscular Hemoglobin 31.1 PG (27.0-31.0) H Mean Corpuscular Hemoglobin Concent 31.4 G/DL (32.0-36.0) L Red Cell Distribution Width 16.2 % (11.6-14.8) H Platelet Count 137 K/UL (150-450) L Mean Platelet Volume 9.3 FL (6.5-10.1) Neutrophils (%) (Auto) % (45.0-75.0) Lymphocytes (%) (Auto) % (20.0-45.0) Monocytes (%) (Auto) % (1.0-10.0) Eosinophils (%) (Auto) % (0.0-3.0) Basophils (%) (Auto) % (0.0-2.0) Sodium Level 150 MMOL/L (136-145) H Potassium Level 3.4 MMOL/L (3.5-5.1) L Chloride Level 115 MMOL/L (98-107) H Carbon Dioxide Level 26 MMOL/L (21-32) Anion Gap 9 mmol/L (5-15) Blood Urea Nitrogen 106 mg/dL (7-18) H Creatinine 2.1 MG/DL (0.55-1.30) H Estimat Glomerular Filtration Rate mL/min (>60) Glucose Level 131 MG/DL (74-106) H Calcium Level 6.6 MG/DL (8.5-10.1) L Total Bilirubin 0.2 MG/DL (0.2-1.0) Aspartate Amino Transf (AST/SGOT) 69 U/L (15-37) H Alanine Aminotransferase (ALT/SGPT) 39 U/L (12-78) Alkaline Phosphatase 74 U/L (46-116) Total Protein 6.0 G/DL (6.4-8.2) L Albumin 0.7 G/DL (3.4-5.0) L Globulin 5.3 g/dL Albumin/Globulin Ratio 0.1 (1.0-2.7) L Current Medications Medications (Trade) Dose Ordered Sig/Yamini Route PRN Reason Start Time Stop Time Status Last Admin Dose Admin Acetaminophen (Tylenol) 650 mg Q4H PRN ORAL Mild Pain/Temp > 100.5 02/01/17 15:30 02/26/17 19:29 Aspirin (ASA) 81 mg DAILY NG 02/02/17 09:00 03/04/17 08:59 02/02/17 08:21 Atorvastatin Calcium (Lipitor) 20 mg BEDTIME GT 02/01/17 21:00 02/26/17 20:59 02/01/17 20:59 Cefepime HCl 1 gm/ Dextrose 55 ml @ 110 mls/hr Q24H IVPB 02/02/17 09:00 02/07/17 08:59 02/02/17 08:22 Ciprofloxacin (Ciloxan Opth Soln) 1 drop Q4HR BOTH EYES 02/01/17 17:00 02/08/17 16:59 02/02/17 13:23 Clindamycin HCl/ Dextrose 50 ml @ 100 mls/hr Q8HR IV 02/01/17 15:00 02/05/17 14:59 02/02/17 13:24 Lansoprazole (Prevacid) 30 mg DAILY GT 02/02/17 09:00 02/27/17 08:59 02/02/17 08:21 Multivitamins (Multivitamins W/ Minerals 15ml Liquid) 15 ml DAILY GT 02/02/17 09:00 02/27/17 08:59 02/02/17 08:21 Oxybutynin Chloride (Ditropan) 10 mg DAILY GT 02/02/17 09:00 02/27/17 08:59 02/02/17 08:21 Quetiapine Fumarate (SEROquel) 12.5 mg DAILY GT 02/02/17 09:00 02/27/17 08:59 02/02/17 08:21 Sodium Chloride 1,000 ml @ 75 mls/hr [id number] IV 02/01/17 15:00 03/02/17 14:59 02/02/17 15:25 Valproic Acid (Depakene) 500 mg Q12HR GT 02/01/17 21:00 02/26/17 20:59 02/02/17 08:20 Lino Barclay M.D. Feb 02, 2017 15:57
[2017-02-02 16:00] VITALS: BP 121/57
--- NOTE | 2017-02-02 18:32 | Progress Note ---
DATE: 02/02/2017 SUBJECTIVE: This is an 86 years old, currently off BiPAP on Venturi mask, doing fine. OBJECTIVE: VITAL SIGNS: Blood pressure is 120/70, pulse 74, and respirations 18. CHEST: Bilateral few crackles. CARDIOVASCULAR: Regular rhythm. No gallop. No murmur. ABDOMEN: Soft. GENITOURINARY: Deferred. EXTREMITIES: CCE. NEUROLOGICAL: The patient has no focal deficit. LABORATORY AND DIAGNOSTIC DATA: Potassium is 3.4. Hemoglobin 7.6. ASSESSMENT: 1. Sepsis. 2. Aspiration pneumonia. 3. Dysphagia. 4. Chronic respiratory failure. 5. Encephalopathy. PLAN: We will currently continue IV fluid, IV antibiotic, and G-tube feeding. The patient tolerating tube feeding. Continue supportive treatment. Alin Peter M.D. DR: Marvin JOB#: [id number] CC:
[2017-02-02 20:00] VITALS: BP 143/67
[2017-02-02] MEDS: Atorvastatin 20mg tab GT SCH (22:46)
[2017-02-03] VITALS: BP 129/69
[2017-02-03] MEDS: Ciprofloxacin Opth Soln 2.5ml BOTH EYES SCH ×6 (01:00→21:22)
[2017-02-03 04:00] VITALS: BP 147/79
[2017-02-03] MEDS: Clindamycin 600mg 50 ML IV SCH ×3 (05:05→21:22)
--- NOTE | 2017-02-03 05:30 | Progress Note ---
DATE: 02/02/2017 CARDIOLOGY PROGRESS NOTE SUBJECTIVE: The patient remains on BiPAP support. Broad-spectrum antibiotics. She is doing poorly. Blood pressure range is stable on pressors, which are being tapered off. PHYSICAL EXAMINATION: VITAL SIGNS: Blood pressure 116/63, pulse 91, and respiratory rate 21. LUNGS: Coarse breath sounds. Few rales. HEART: Irregularly irregular rhythm. Normal S1, S2. ABDOMEN: Soft. EXTREMITIES: Trace edema. LABORATORY DATA: White count 8, hemoglobin 7.6, sodium 150, potassium 3.4, bicarbonate 36, BUN 106, and creatinine 2.1. IMPRESSION: 1. Acute renal failure. 2. Dehydration with hypernatremia and hypokalemia. 3. Acute myocardial infarction. 4. Paroxysmal atrial fibrillation. PLAN: 1. Remain off pressors. 2. BiPAP support. 3. Titrate antihypertensives if blood pressure parameter stabilizes, add beta-gunnar at that time. 4. Maintain anti-platelet therapy and statin drugs. David Abreu M.D. DR: WILMAR JOB#: [id number] CC:
[2017-02-03 08:00] VITALS: BP 149/89
[2017-02-03] MEDS: Aspirin Baby 81mg NG SCH (09:26)
[2017-02-03] MEDS: Multivitamins W/Minerals 15 ML UDC GT SCH (09:26)
[2017-02-03] MEDS: Oxybutynin 5mg tab GT SCH (09:27)
[2017-02-03] MEDS: Valproic Acid 250mg/5ml Liquid GT SCH ×2 (09:27→20:45)
[2017-02-03] MEDS: Cefepime HCl 1 GM in D5W 55 ML IVPB SCH (09:31)
[2017-02-03] MEDS: Metoprolol 25mg tab GT SCH ×2 (09:31→20:45)
[2017-02-03 12:00] VITALS: BP 144/76
--- NOTE | 2017-02-03 13:57 | Pulmonology Progress Note ---
Assessment/Plan Assessment/Plan 1. Pneumonia. 2. Sepsis with shock. 3. Acute myocardial ischemia. 4. Atrial fibrillation with rapid ventricular response. 5. Right hip wound. 6. Anemia. 7. Hypoxemia. 8. Acute respiratory failure. 9. Hypovolemia. 10. Dehydration, ANA ROSA/CKD PLAN: off BiPAP saturation satisfactory on mask oxygen Broad-spectrum antibiotics per ID prognosis poor repeat CXR DNR/DNI Subjective ROS Limited/Unobtainable: Yes Allergies: Coded Allergies: IODINE (Verified Allergy, Unknown, 01/27/17) Objective Last 24 Hour Vital Signs Date Time Temp Pulse Resp B/P (MAP) Pulse Ox O2 Delivery O2 Flow Rate FiO2 02/03/17 12:00 96.6 82 19 144/76 97 Venturi Mask 02/03/17 11:13 89 02/03/17 09:31 94 149/89 02/03/17 08:00 97.0 99 18 149/89 99 Venturi Mask 02/03/17 08:00 94 02/03/17 06:47 97 Venturi Mask 10.0 45 02/03/17 06:47 Venturi Mask 10.0 45 02/03/17 06:47 89 20 Venturi Mask 10.0 45 02/03/17 04:00 86 02/03/17 04:00 97.5 95 32 147/79 99 Venturi Mask 02/03/17 00:00 90 02/03/17 00:00 97.6 90 32 129/69 98 Venturi Mask 02/02/17 20:50 90 20 Venturi Mask 10.0 40 02/02/17 20:00 97.7 91 32 143/67 99 Venturi Mask 02/02/17 20:00 Venturi Mask 10.0 40 02/02/17 20:00 87 02/02/17 20:00 97 Venturi Mask 10.0 40 02/02/17 16:00 97.8 96 18 121/57 98 Venturi Mask 45 02/02/17 16:00 114 Intake and Output 02/02/17 02/03/17 19:00 07:00 Intake Total 1435 ml 575 ml Output Total 650 ml 1000 ml Balance 785 ml -425 ml Intake Free Water 100 ml IV Total 855 ml 575 ml Tube Feeding 480 ml Output Urine Total 650 ml 1000 ml # Bowel Movements 3 General Appearance: no acute distress HEENT: atraumatic Respiratory/Chest: decreased breath sounds Cardiovascular: normal rate Current Medications Medications (Trade) Dose Ordered Sig/Yamini Route PRN Reason Start Time Stop Time Status Last Admin Dose Admin Acetaminophen (Tylenol) 650 mg Q4H PRN ORAL Mild Pain/Temp > 100.5 02/01/17 15:30 02/26/17 19:29 Aspirin (ASA) 81 mg DAILY NG 02/02/17 09:00 03/04/17 08:59 02/03/17 09:26 Atorvastatin Calcium (Lipitor) 20 mg BEDTIME GT 02/01/17 21:00 02/26/17 20:59 02/02/17 22:46 Cefepime HCl 1 gm/ Dextrose 55 ml @ 110 mls/hr Q24H IVPB 02/02/17 09:00 02/07/17 08:59 02/03/17 09:31 Ciprofloxacin (Ciloxan Opth Soln) 1 drop Q4HR BOTH EYES 02/01/17 17:00 02/08/17 16:59 02/03/17 12:56 Clindamycin HCl/ Dextrose 50 ml @ 100 mls/hr Q8HR IV 02/01/17 15:00 02/05/17 14:59 02/03/17 05:05 Lansoprazole (Prevacid) 30 mg DAILY GT 02/02/17 09:00 02/27/17 08:59 02/03/17 09:26 Metoprolol Tartrate (Lopressor) 25 mg Q12HR GT 02/03/17 09:00 03/05/17 08:59 02/03/17 09:31 Multivitamins (Multivitamins W/ Minerals 15ml Liquid) 15 ml DAILY GT 02/02/17 09:00 02/27/17 08:59 02/03/17 09:26 Oxybutynin Chloride (Ditropan) 10 mg DAILY GT 02/02/17 09:00 02/27/17 08:59 02/03/17 09:27 Quetiapine Fumarate (SEROquel) 12.5 mg DAILY GT 02/02/17 09:00 02/27/17 08:59 02/03/17 09:26 Sodium Chloride 1,000 ml @ 75 mls/hr [id number] IV 02/01/17 15:00 03/02/17 14:59 02/03/17 05:13 Valproic Acid (Depakene) 500 mg Q12HR GT 02/01/17 21:00 02/26/17 20:59 02/03/17 09:27 JOMAR CARRANZA Feb 03, 2017 13:57
--- NOTE | 2017-02-03 14:55 | Infectious Diseases Prog Note ---
Assessment/Plan Problems: (1) HCAP (healthcare-associated pneumonia) Assessment & Plan: with worsening infiltrates , suspect aspiration related , on clindamycin and cefepime empiric coverage, continue aspiration precaution, keep HOB elevated all the time more than 30 degree (2) UTI (urinary tract infection) Assessment & Plan: due to proteus mirabilis , pansensitive , on cefepime empiric coverage (3) Sepsis Assessment & Plan: due to the above, blood culture grew coag negative staph in one set , most likely contaminant , already on clindamycin and cefepime, pending culture (4) ANA ROSA (acute kidney injury) Assessment & Plan: due to sepsis , continue hydration and monitor urine out put , nephrology is following (5) Wound, open, hip or thigh Assessment & Plan: already on wide spectrum antibiotics coverage , culture grew gram negative bacillus , continue local wound care and dressing change as per wound care service , continue off loading (6) Acute respiratory failure Assessment & Plan: due to the above, continue high flow oxygen, monitor ABG, and CXR (7) Dehydration Assessment & Plan: continue IVF for hydration , monitor urine output and electrolytes (8) Acute conjunctivitis of both eyes Assessment & Plan: on cipro eye drops in both eyes Subjective ROS Limited/Unobtainable: Yes Allergies: Coded Allergies: IODINE (Verified Allergy, Unknown, 01/27/17) Subjective she was on high flow oxygen , more awake, and comfortable , not in distress, unresponsive to verbal commands, afebrile Objective Vital Signs Last 24 Hour Vital Signs Date Time Temp Pulse Resp B/P (MAP) Pulse Ox O2 Delivery O2 Flow Rate FiO2 02/03/17 12:00 96.6 82 19 144/76 97 Venturi Mask 02/03/17 11:13 89 02/03/17 09:31 94 149/89 02/03/17 08:00 97.0 99 18 149/89 99 Venturi Mask 02/03/17 08:00 94 02/03/17 06:47 97 Venturi Mask 10.0 45 02/03/17 06:47 Venturi Mask 10.0 45 02/03/17 06:47 89 20 Venturi Mask 10.0 45 02/03/17 04:00 86 02/03/17 04:00 97.5 95 32 147/79 99 Venturi Mask 02/03/17 00:00 90 02/03/17 00:00 97.6 90 32 129/69 98 Venturi Mask 02/02/17 20:50 90 20 Venturi Mask 10.0 40 02/02/17 20:00 97.7 91 32 143/67 99 Venturi Mask 02/02/17 20:00 Venturi Mask 10.0 40 02/02/17 20:00 87 02/02/17 20:00 97 Venturi Mask 10.0 40 02/02/17 16:00 97.8 96 18 121/57 98 Venturi Mask 45 02/02/17 16:00 114 Height (Feet): 5 Height (Inches): 3.00 Weight (Pounds): 115 General Appearance: WD/WN, no acute distress HEENT: normocephalic, atraumatic, anicteric, mucous membranes moist, PERRL Respiratory/Chest: chest wall non-tender, no respiratory distress, no accessory muscle use, decreased breath sounds, crackles/rales Cardiovascular: normal peripheral pulses, normal rate, regular rhythm, no gallop/murmur, no JVD Abdomen: normal bowel sounds, soft, non tender, no organomegaly, non distended , no mass, no scars Extremities: no cyanosis, no clubbing Skin: no rash, no lesions, no ulcers Neurologic/Psychiatric: alert Current Medications Medications (Trade) Dose Ordered Sig/Yamini Route PRN Reason Start Time Stop Time Status Last Admin Dose Admin Acetaminophen (Tylenol) 650 mg Q4H PRN ORAL Mild Pain/Temp > 100.5 02/01/17 15:30 02/26/17 19:29 Aspirin (ASA) 81 mg DAILY NG 02/02/17 09:00 03/04/17 08:59 02/03/17 09:26 Atorvastatin Calcium (Lipitor) 20 mg BEDTIME GT 02/01/17 21:00 02/26/17 20:59 02/02/17 22:46 Cefepime HCl 1 gm/ Dextrose 55 ml @ 110 mls/hr Q24H IVPB 02/02/17 09:00 02/07/17 08:59 02/03/17 09:31 Ciprofloxacin (Ciloxan Opth Soln) 1 drop Q4HR BOTH EYES 02/01/17 17:00 02/08/17 16:59 02/03/17 12:56 Clindamycin HCl/ Dextrose 50 ml @ 100 mls/hr Q8HR IV 02/01/17 15:00 02/05/17 14:59 02/03/17 14:09 Lansoprazole (Prevacid) 30 mg DAILY GT 02/02/17 09:00 02/27/17 08:59 02/03/17 09:26 Metoprolol Tartrate (Lopressor) 25 mg Q12HR GT 02/03/17 09:00 03/05/17 08:59 02/03/17 09:31 Multivitamins (Multivitamins W/ Minerals 15ml Liquid) 15 ml DAILY GT 02/02/17 09:00 02/27/17 08:59 02/03/17 09:26 Oxybutynin Chloride (Ditropan) 10 mg DAILY GT 02/02/17 09:00 02/27/17 08:59 02/03/17 09:27 Quetiapine Fumarate (SEROquel) 12.5 mg DAILY GT 02/02/17 09:00 02/27/17 08:59 02/03/17 09:26 Sodium Chloride 1,000 ml @ 75 mls/hr [id number] IV 02/01/17 15:00 03/02/17 14:59 02/03/17 05:13 Valproic Acid (Depakene) 500 mg Q12HR GT 02/01/17 21:00 02/26/17 20:59 02/03/17 09:27 Lino Barclay M.D. Feb 03, 2017 14:55
[2017-02-03 16:00] VITALS: BP 124/65
[2017-02-03 20:00] VITALS: BP 132/58
[2017-02-03] MEDS: Atorvastatin 20mg tab GT SCH (20:45)
--- NOTE | 2017-02-03 22:15 | Progress Note ---
DATE: 02/03/2017 SUBJECTIVE: This is an elderly 86-year-old female, currently in bed and comfortable on Venturi mask. No distress. OBJECTIVE: VITAL SIGNS: Blood pressure is 100/40, pulse 74, and respirations 18. SKIN: Good skin turgor. CHEST: Bilateral crackles. CARDIOVASCULAR: Regular rhythm. No gallop. No murmur. ABDOMEN: Soft. EXTREMITIES: CCE. NEUROLOGIC: The patient is in no focal deficit. GENITOURINARY: Deferred. LABORATORY AND DIAGNOSTIC DATA: Laboratory examinations are not available. ASSESSMENT AND PLAN: 1. Chronic respiratory failure. 2. Sepsis. 3. Dehydration. 4. Renal insufficiency. PLAN: We will continue IV fluid, IV antibiotic, oxygen, and bronchodilator treatments. Alin Peter M.D. DR: ESTRELLITA JOB#: [id number] CC:
[2017-02-04] VITALS: BP 126/60
[2017-02-04] MEDS: Ciprofloxacin Opth Soln 2.5ml BOTH EYES SCH ×6 (01:16→20:49)
[2017-02-04 04:00] VITALS: BP 124/74
--- NOTE | 2017-02-04 05:00 | Progress Note ---
DATE: 02/03/2017 CARDIOLOGY PROGRESS NOTE SUBJECTIVE: The patient is seen and evaluated. She is off BiPAP, saturations are adequate. She remains on antibiotics. Monitor atrial fibrillation. PHYSICAL EXAMINATION: VITAL SIGNS: Blood pressure 144/76, heart rate 82, and respiratory rate 19. LUNGS: Bilateral breath sounds. Scattered rhonchi. HEART: Irregularly irregular rhythm. Normal S1, S2. ABDOMEN: Soft. EXTREMITIES: Trace dependent edema. LABORATORY DATA: No new labs today. IMPRESSION: 1. Dehydration. 2. Hyponatremia and hypokalemia, recovering. 3. Acute myocardial infarction, uncomplicated. 4. Paroxysmal atrial fibrillation, now with stable cardiac rhythm, and rate control. 5. Acute renal failure, resolving. 6. Pneumonia, improving. 7. Sepsis with shock, resolved. Therapy and orders reviewed and discussed with the team. David Abreu M.D. DR: OPAL JOB#: [id number] CC:
[2017-02-04] MEDS: Clindamycin 600mg 50 ML IV SCH ×2 (05:05→14:06)
--- NOTE | 2017-02-04 05:15 | Progress Note ---
DATE: 02/04/2017 CARDIOLOGY PROGRESS NOTE SUBJECTIVE: The patient is in bed, obtunded, poorly responsive. No respiratory distress, on a facemask. OBJECTIVE: VITAL SIGNS: Blood pressure 132/58, pulse 84, and respirations 20. Monitored rhythm sinus. LUNGS: Bilateral breath sounds. Scattered rhonchi. HEART: Regular rhythm and rate. Normal S1 and S2 with frequent ectopics. EXTREMITIES: A 1+ dependent edema. IMPRESSION: 1. Respiratory failure, improved. 2. Sepsis with shock, recovered. 3. Pneumonia, improving. 4. Paroxysmal atrial fibrillation with rapid ventricular response, stabilized. 5. Acute myocardial infarction, uncomplicated and precipitated by increased demand due to rapid atrial fibrillation. 6. Acute renal failure with hypovolemia, dehydration, and now recovering. Plan of care reviewed. Medications discussed. Prognosis is poor. The patient has high risk complications. David Abreu M.D. DR: SIL/SUKHDEEP JOB#: [id number] CC:
[2017-02-04 08:00] VITALS: BP 133/59
[2017-02-04] MEDS: Cefepime HCl 1 GM in D5W 55 ML IVPB SCH (09:00)
[2017-02-04] MEDS: Valproic Acid 250mg/5ml Liquid GT SCH (09:01)
[2017-02-04] MEDS: Oxybutynin 5mg tab GT SCH (09:01)
[2017-02-04] MEDS: Aspirin Baby 81mg NG SCH (09:01)
[2017-02-04] MEDS: Metoprolol 25mg tab GT SCH (09:01)
[2017-02-04] MEDS: Multivitamins W/Minerals 15 ML UDC GT SCH (09:02)
--- NOTE | 2017-02-04 09:34 | Diagnostic Imaging Report ---
Indication: Shortness of breath Technique: XRAY Chest 1v Comparison: 02/02/2017 Findings: Patient rotation the left. Heart size and mediastinal contours are stable. There is worsening of aeration with increased interstitial opacification/edema and increasing right perihilar/right midlung opacity. Interval development of retrocardiac atelectasis/consolidation. Small layering bilateral pleural effusions. No definite pneumothorax. There is osteopenia, scoliosis and multilevel degenerative changes of the spine. Impression: Overall worsening of disease with increased interstitial opacification/edema and increasing patchy bilateral airspace opacities and small bilateral layering pleural effusions.
[2017-02-04 12:00] VITALS: BP 126/59
[2017-02-04] MEDS ORDERED: PCA Morphine 1mg/ml 30 ML IV PRN ×2 (13:45→19:30)
--- NOTE | 2017-02-04 13:45 | Pulmonology Progress Note ---
Assessment/Plan Assessment/Plan 1. Pneumonia. 2. Sepsis with shock. 3. Acute myocardial ischemia. 4. Atrial fibrillation with rapid ventricular response. 5. Right hip wound. 6. Anemia. 7. Hypoxemia. 8. Acute respiratory failure. 9. Hypovolemia. 10. Dehydration, ANA ROSA/CKD PLAN: the patient is in distress Broad-spectrum antibiotics per ID prognosis poor repeat CXR: worsening of disease with increased interstitial opacification/edema and increasing patchy bilateral airspace opacities and small bilateral layering pleural effusions. DNR/DNI disc w Dr Peter - will give morphine for comfort Subjective ROS Limited/Unobtainable: Yes Respiratory: Reports: dyspnea at rest, wheezing Allergies: Coded Allergies: IODINE (Verified Allergy, Unknown, 01/27/17) Objective Last 24 Hour Vital Signs Date Time Temp Pulse Resp B/P (MAP) Pulse Ox O2 Delivery O2 Flow Rate FiO2 02/04/17 12:00 97.2 82 18 126/59 99 Venturi Mask 10.0 45 02/04/17 09:01 82 133/59 02/04/17 08:00 77 02/04/17 08:00 97.8 82 18 133/59 96 Venturi Mask 10.0 45 02/04/17 06:50 99 Venturi Mask 10.0 45 02/04/17 06:50 Venturi Mask 10.0 45 02/04/17 06:50 91 20 Venturi Mask 10.0 45 02/04/17 04:00 80 02/04/17 04:00 97.0 82 20 124/74 97 Venturi Mask 02/04/17 00:00 97.3 72 20 126/60 97 Venturi Mask 02/04/17 00:00 75 02/03/17 20:45 84 132/58 02/03/17 20:00 80 02/03/17 20:00 97.2 20 132/58 97 Venturi Mask 02/03/17 19:30 97 Venturi Mask 10.0 45 02/03/17 19:30 80 20 Venturi Mask 10.0 45 02/03/17 19:30 Venturi Mask 10.0 45 02/03/17 16:00 98.1 83 19 124/65 96 02/03/17 15:35 90 Intake and Output 02/03/17 02/04/17 19:00 07:00 Intake Total 1630 ml 1505 ml Output Total 800 ml 1000 ml Balance 830 ml 505 ml Intake Free Water 150 ml 150 ml IV Total 1000 ml 875 ml Tube Feeding 480 ml 480 ml Output Urine Total 800 ml 1000 ml # Bowel Movements 1 1 General Appearance: other - in resp distress HEENT: atraumatic Respiratory/Chest: rhonchi, expiratory wheezing Cardiovascular: normal rate Current Medications Medications (Trade) Dose Ordered Sig/Yamini Route PRN Reason Start Time Stop Time Status Last Admin Dose Admin Acetaminophen (Tylenol) 650 mg Q4H PRN ORAL Mild Pain/Temp > 100.5 02/01/17 15:30 02/26/17 19:29 Aspirin (ASA) 81 mg DAILY NG 02/02/17 09:00 03/04/17 08:59 02/04/17 09:01 Atorvastatin Calcium (Lipitor) 20 mg BEDTIME GT 02/01/17 21:00 02/26/17 20:59 02/03/17 20:45 Cefepime HCl 1 gm/ Dextrose 55 ml @ 110 mls/hr Q24H IVPB 02/02/17 09:00 02/07/17 08:59 02/04/17 09:00 Ciprofloxacin (Ciloxan Opth Soln) 1 drop Q4HR BOTH EYES 02/01/17 17:00 02/08/17 16:59 02/04/17 13:05 Clindamycin HCl/ Dextrose 50 ml @ 100 mls/hr Q8HR IV 02/01/17 15:00 02/05/17 14:59 02/04/17 05:05 Lansoprazole (Prevacid) 30 mg DAILY GT 02/02/17 09:00 02/27/17 08:59 02/04/17 09:16 Metoprolol Tartrate (Lopressor) 25 mg Q12HR GT 02/03/17 09:00 03/05/17 08:59 02/04/17 09:01 Multivitamins (Multivitamins W/ Minerals 15ml Liquid) 15 ml DAILY GT 02/02/17 09:00 02/27/17 08:59 02/04/17 09:02 Oxybutynin Chloride (Ditropan) 10 mg DAILY GT 02/02/17 09:00 02/27/17 08:59 02/04/17 09:01 Quetiapine Fumarate (SEROquel) 12.5 mg DAILY GT 02/02/17 09:00 02/27/17 08:59 02/04/17 09:00 Sodium Chloride 1,000 ml @ 75 mls/hr [id number] IV 02/01/17 15:00 03/02/17 14:59 02/04/17 09:17 Valproic Acid (Depakene) 500 mg Q12HR GT 02/01/17 21:00 02/26/17 20:59 02/04/17 09:01 JOMAR CARRANZA Feb 04, 2017 13:45
--- NOTE | 2017-02-04 15:22 | Infectious Diseases Prog Note ---
Assessment/Plan Problems: (1) HCAP (healthcare-associated pneumonia) Assessment & Plan: with worsening infiltrates , suspect aspiration related , no significant improvement , will switch clindamycin and cefepime to zosyn , continue aspiration precaution, keep HOB elevated all the time more than 30 degree (2) UTI (urinary tract infection) Assessment & Plan: due to proteus mirabilis , pansensitive , on cefepime empiric coverage (3) Sepsis Assessment & Plan: due to the above, blood culture grew coag negative staph in one set , most likely contaminant , already on clindamycin and cefepime, pending culture (4) ANA ROSA (acute kidney injury) Assessment & Plan: due to sepsis , continue hydration and monitor urine out put , nephrology is following (5) Wound, open, hip or thigh Assessment & Plan: already on wide spectrum antibiotics coverage , culture grew gram negative bacillus , continue local wound care and dressing change as per wound care service , continue off loading (6) Acute respiratory failure Assessment & Plan: due to the above, continue high flow oxygen, monitor ABG, and CXR (7) Dehydration Assessment & Plan: continue IVF for hydration , monitor urine output and electrolytes (8) Acute conjunctivitis of both eyes Assessment & Plan: on cipro eye drops in both eyes Subjective ROS Limited/Unobtainable: Yes Allergies: Coded Allergies: IODINE (Verified Allergy, Unknown, 01/27/17) Subjective she was on high flow oxygen , tachypneic , in mild distress, unresponsive to verbal commands, afebrile Objective Vital Signs Last 24 Hour Vital Signs Date Time Temp Pulse Resp B/P (MAP) Pulse Ox O2 Delivery O2 Flow Rate FiO2 02/04/17 12:00 97.2 82 18 126/59 99 Venturi Mask 10.0 45 02/04/17 09:01 82 133/59 02/04/17 08:00 77 02/04/17 08:00 97.8 82 18 133/59 96 Venturi Mask 10.0 45 02/04/17 06:50 99 Venturi Mask 10.0 45 02/04/17 06:50 Venturi Mask 10.0 45 02/04/17 06:50 91 20 Venturi Mask 10.0 45 02/04/17 04:00 80 02/04/17 04:00 97.0 82 20 124/74 97 Venturi Mask 02/04/17 00:00 97.3 72 20 126/60 97 Venturi Mask 02/04/17 00:00 75 02/03/17 20:45 84 132/58 02/03/17 20:00 80 02/03/17 20:00 97.2 20 132/58 97 Venturi Mask 02/03/17 19:30 97 Venturi Mask 10.0 45 02/03/17 19:30 80 20 Venturi Mask 10.0 45 02/03/17 19:30 Venturi Mask 10.0 45 02/03/17 16:00 98.1 83 19 124/65 96 02/03/17 15:35 90 Height (Feet): 5 Height (Inches): 3.00 Weight (Pounds): 115 General Appearance: WD/WN, other - tachypnic HEENT: normocephalic, atraumatic, anicteric, mucous membranes moist, PERRL Respiratory/Chest: chest wall non-tender, lungs clear, normal breath sounds, no respiratory distress, no accessory muscle use, decreased breath sounds, crackles/rales Cardiovascular: normal peripheral pulses, normal rate, regular rhythm, no gallop/murmur, no JVD Abdomen: normal bowel sounds, soft, non tender, no organomegaly, non distended , no mass Extremities: no cyanosis, no clubbing Skin: no rash, no lesions, no ulcers Neurologic/Psychiatric: unresponsiveness Current Medications Medications (Trade) Dose Ordered Sig/Yamini Route PRN Reason Start Time Stop Time Status Last Admin Dose Admin Acetaminophen (Tylenol) 650 mg Q4H PRN ORAL Mild Pain/Temp > 100.5 02/01/17 15:30 02/26/17 19:29 Aspirin (ASA) 81 mg DAILY NG 02/02/17 09:00 03/04/17 08:59 02/04/17 09:01 Atorvastatin Calcium (Lipitor) 20 mg BEDTIME GT 02/01/17 21:00 02/26/17 20:59 02/03/17 20:45 Cefepime HCl 1 gm/ Dextrose 55 ml @ 110 mls/hr Q24H IVPB 02/02/17 09:00 02/07/17 08:59 02/04/17 09:00 Ciprofloxacin (Ciloxan Opth Soln) 1 drop Q4HR BOTH EYES 02/01/17 17:00 02/08/17 16:59 02/04/17 13:05 Clindamycin HCl/ Dextrose 50 ml @ 100 mls/hr Q8HR IV 02/01/17 15:00 02/05/17 14:59 02/04/17 14:06 Lansoprazole (Prevacid) 30 mg DAILY GT 02/02/17 09:00 02/27/17 08:59 02/04/17 09:16 Metoprolol Tartrate (Lopressor) 25 mg Q12HR GT 02/03/17 09:00 03/05/17 08:59 02/04/17 09:01 Morphine Sulfate 30 ml @ 0 mls/hr FLAG SIGNALER Protocol PRN IV Shortness of Breath 02/04/17 13:45 02/07/17 13:44 Multivitamins (Multivitamins W/ Minerals 15ml Liquid) 15 ml DAILY GT 02/02/17 09:00 02/27/17 08:59 02/04/17 09:02 Oxybutynin Chloride (Ditropan) 10 mg DAILY GT 02/02/17 09:00 02/27/17 08:59 02/04/17 09:01 Quetiapine Fumarate (SEROquel) 12.5 mg DAILY GT 02/02/17 09:00 02/27/17 08:59 02/04/17 09:00 Sodium Chloride 1,000 ml @ 75 mls/hr [id number] IV 02/01/17 15:00 03/02/17 14:59 02/04/17 09:17 Valproic Acid (Depakene) 500 mg Q12HR GT 02/01/17 21:00 02/26/17 20:59 02/04/17 09:01 Lino Barclay M.D. Feb 04, 2017 15:22
[2017-02-04 16:00] VITALS: BP 130/61
[2017-02-04] MEDS ORDERED: Piperacillin/Tazobactam 3.375 GM in NS 110 ML IVPB SCH ×4 (18:00)
[2017-02-04] MEDS ORDERED: Morphine Sulfate 4mg/ml Inj SUBQ PRN (19:30)
[2017-02-04] MEDS ORDERED: PCA shift volume MISC SCH (19:30)
[2017-02-04] MEDS ORDERED: Morphine Sulfate 2mg/ml Inj IV PRN (19:30)
[2017-02-04] MEDS ORDERED: Rate Change PCA 1 Each MISC PRN (19:30)
[2017-02-04 20:00] VITALS: BP 126/69
[2017-02-04] MEDS ORDERED: PCA Education Pamphlet MISC ONE (20:00)
[2017-02-04] MEDS ORDERED: Metoprolol 25mg tab GT SCH (21:00)
[2017-02-04] MEDS ORDERED: Valproic Acid 250mg/5ml Liquid GT SCH (21:00)
[2017-02-04] MEDS ORDERED: Atorvastatin 20mg tab GT SCH (21:00)
[2017-02-05] VITALS: BP 128/67
[2017-02-05] MEDS: Ciprofloxacin Opth Soln 2.5ml BOTH EYES SCH (01:41)
[2017-02-05] MEDS ORDERED: NS 275ml ONE ×2 (04:49)
[2017-02-05] MEDS ORDERED: Tubing IV Secondary IV ONE ×2 (04:49)
[2017-02-05] MEDS ORDERED: 1/2 NS 1000ml IV ONE ×4 (04:49)
[2017-02-05] MEDS ORDERED: Sterile Water Irrig 1000ml IRRIG ONE (04:49)
[2017-02-05 04:56] VITALS: BP 70/29
[2017-02-05] MEDS ORDERED: Oxybutynin 5mg tab GT SCH (09:00)
[2017-02-05] MEDS ORDERED: Multivitamins W/Minerals 15 ML UDC GT SCH (09:00)
[2017-02-05] MEDS ORDERED: Aspirin Baby 81mg NG SCH (09:00)
--- NOTE | 2017-02-08 09:48 | Discharge Summary ---
Discharge Summary Hospital Course Date of Admission Jan 27, 2017 at 07:07 Date of Discharge Feb 05, 2017 at 04:50 Admitting Diagnosis SEPSIS, UTI HPI Leanarobertlobito Krishnan is a 86 year old female who was admitted on Jan 27, 2017 at 07:07 for Sepsis,Uti Hospital Course summary #[id number] Discharge Discharge Disposition Patient Discharge Diagnoses: Discharge Instructions Discharge Instructions Special Instructions I have been assigned to complete a D/C Summary on this account. I was not involved in the patient management Wilma Powers NP ([place]) Feb 08, 2017 09:48
--- NOTE | 2017-02-09 03:15 | Discharge Summary 2 SIG ---
SUMMARY DATE OF ADMISSION: 01/27/2017 DATE OF EXPIRATION: 02/05/2017. REASON FOR ADMISSION: 86-[facility]-old [facility] with DNR/DNI status and past medical history significant for hypertension, dementia, dysphagia, and G-tube, presented with altered mental status and fever. No nausea, no vomiting, and no diarrhea were reported from the [facility] facility. Workup in the emergency room revealed a fever of 103 rectally. The patient was tachycardic- 112, hypoxic, required placement of 100% nonrebreathing mask, and hypotensive -95/45. Urinalysis with evidence of UTI. Chest x-ray with evidence of pneumonia. WBC- 17.9, hemoglobin -7.5, and hematocrit- 24.3. Lactic acid- 2.7. Sodium -157, potassium- 2.4, BUN-98, and creatinine- 1.9. The patient presented with pneumonia and UTI. Septic workup initiated. The patient was started on the IV fluids and empiric antibiotics. Troponin -0.158. The patient admitted with diagnoses of sepsis, pneumonia, UTI, anemia, acute renal failure, dehydration, and possible acute coronary syndrome. HOSPITAL COURSE: The patient admitted to ICU. Cardiology, Pulmonary, and Infectious Disease consults were requested. The patient was on IV hydration with aggressive volume resuscitation. BiPAP support provided. Pulmonology closely followed. Pulmonary toilet provided [id number] and as needed. Oxygen titrated to keep saturation above 92%. The patient was on the BiPAP initially and then downgraded to Venturi mask for more comfort. Patient was followed up with ABGs . The patient was started on empiric antibiotics. Infectious Disease specialist closely followed. Blood culture showed 1/4 growth of Staph coagulase-negative, likely contaminated. Urine culture revealed Proteus. Sputum culture was not collected. Wound culture from the right hip wound showed Proteus and Pseudomonas. The patient was on antibiotics, optimized as per Infectious Diseases management. Cutting Room Supervisor closely followed. Follow up chest x-ray with worsening findings, and the last chest x-ray revealed overall worsening of disease with increased interstitial opacification/edema and increased patchy bilateral airspace opacities with small bilateral layering of pleural effusion. Wildlife Conservation Professor closely followed the patient. According to secondary set up man, the patient had acute myocardial infarction, uncomplicated and precipitated by increased demand secondary to rapid atrial fibrillation. The patient noted to have paroxysmal atrial fibrillation with a rapid ventricular response. The patient was placed on the aspirin, and heart rate was controlled with beta-gunnar. Statin was continued. The patient noted to be anemic and required one unit of packed red blood cells transfusion. The patient was transfused for a hemoglobin- 6.2 and hematocrit -19.9. The patient was also noted to have acute renal failure. Initially, BUN -98 and creatinine -1.9. The patient was treated with IV hydration. Nephrology consult was requested. The patient apparently also had chronic renal insufficiency. Prior to expiration, BUN- 106 and creatinine -2.1. Potassium replaced. Sodium continued to be high. Wound care provided as per wound nurse recommendations. Second troponin was with trend up - 0.252. The patient DNR/DNI status with respiratory distress. Overall prognosis was poor as confirmed by all consultants. Per hose wrapper, the patient was started on a morphine drip for the comfort. The patient's condition was rapidly deteriorating. Blood pressure was dropping, the patient was tachypneic , but showed no signs of respiratory distress. The patient was pronounced on 02/05/2017 at 04:50. Cause of : Cardiopulmonary arrest. FINAL DIAGNOSES: 1. Sepsis with shock. 2. Acute myocardial infarction, uncomplicated and precipitated by increased demand secondary to rapid atrial fibrillation. 3. Healthcare-associated pneumonia, suspecting aspiration. 4. Urinary tract infection with Proteus. 5. Paroxysmal atrial fibrillation with rapid ventricular response. 6. Acute respiratory failure with hypoxemia. 7. Acute kidney injury on chronic kidney disease. 8. Dehydration. 9. Right hip wound. 10. Right posterior back un-stageable pressure ulcer, present on admission. 11. Multiple deep tissue injuries present on admission. 12. Anemia, status post blood transfusion. Alin Peter M.D. I have been assigned to dictate discharge summary on this account and I was not involved in the patient's management. Wilma [facility]court[facility]) N.PMaira DR: Lior JOB#: [id number] CC: [id number]
== END 2017-02-05 04:50 | disposition expired | DRG 871 ==
LOC: EDBD 04:43 → EMR 05:01 → 2E 07:07 → EDBEDREQ 11:20 → ICU 01-30 00:20 → 2W 02-01 14:24 → 4E 02-04 17:00
PROC: 5A09457 Assistance with Respiratory Ventilation, 24-96 Consecutive Hours, Continuous Positive Airway Pressure (ICD-10-PCS; principal; 2017-01-27)
PROC: 30233N1 Transfusion of Nonautologous Red Blood Cells into Peripheral Vein, Percutaneous Approach (ICD-10-PCS; 2017-01-29)
DX: A41.9 Sepsis, unspecified organism (principal); J69.0 Pneumonitis due to inhalation of food and vomit; J96.21 Acute and chronic respiratory failure with hypoxia; I21.9 Acute myocardial infarction, unspecified; R65.21 Severe sepsis with septic shock; N17.9 Acute kidney failure, unspecified; E87.0 Hyperosmolality and hypernatremia; L89.100 Pressure ulcer of unspecified part of back, unstageable; I24.9 Acute ischemic heart disease, unspecified; N39.0 Urinary tract infection, site not specified; I48.0 Paroxysmal atrial fibrillation; E86.0 Dehydration; I10 Essential (primary) hypertension; D64.9 Anemia, unspecified; Z66 Do not resuscitate; E66.9 Obesity, unspecified; H10.33 Unspecified acute conjunctivitis, bilateral; E87.6 Hypokalemia; I12.9 Hypertensive chronic kidney disease with stage 1 through stage 4 chronic kidney disease, or unspecified chronic kidney disease; N18.9 Chronic kidney disease, unspecified; Y95 Nosocomial condition; Z93.1 Gastrostomy status; Z68.20 Body mass index [BMI] 20.0-20.9, adult; Z91.041 Radiographic dye allergy status; B96.4 Proteus (mirabilis) (morganii) as the cause of diseases classified elsewhere
CPT/HCPCS: 36415; 36600; 51702; 71010; 80048; 80053; 80202; 81003; 82550; 82553; 82803; 83605; 83735; 84484; 85007; 85025; 86850; 86900; 86901; 86920; 87040; 87070; 87081; 87086; 87181; 87205; 93005; 94660; 94664; 94760; J8499; S0077